=== PATIENT | female | born 1935 | race Caucasian/White ===

== ENCOUNTER → 2016-04-27 | Outpatient (CLI) | payer OTHER, MEDICARE ==
[~2016-04-27] MED LIST: ACET-1311 PEG; ACET650S10 RE; AMLO-110 PEG; ASCO500T16 PEG; BACIOIN2 TOP; BISA10SU38 PR; BNDL2 PEG; DEXT40GE PO; DFL100 PEG; DILT120C68 PEG; GLGKIT IM; GUAI-13 PO; HYDR-4716 PEG; INSDGI SC; IPRASOL4 INH; LCTX PO; LINE1TAB6 PEG; LINE1TAB6 PO; MEGE40SU PEG; METO10SO PEG; MIRT15TA2 PEG; MOML PO; MTML PO; MULTTAB PEG; MULTTAB5 PO; NTRS PEG; NUTR-431 PEG; NVLGI SC; ONDA4TAB46 PEG; OXYC1CAP5 PEG; POLY335019 PEG; POTA10PO PEG; PROT6POW PEG; RRALBUT083 INH; SERT50TA PEG; SODIENE PR; SYN112 PEG; ZINC1CAP PEG; ZNTL PEG
== END ==
LOC: C.LABUPNIT 09:49
PROVIDERS: ATTEND Family Medicine
DX: N64.9 Disorder of breast, unspecified (principal)

== ENCOUNTER → 2016-05-01 | Outpatient (CLI) | payer OTHER, MEDICARE ==
[~2016-05-01] MED LIST changes: +APR/25 PEG; -HYDR-4716 PEG
[2016-05-01 09:57] LABS: BASO % 0.2 %; BASO ABS # 0.04 K/uL (0-0.2); COMPLETE YES; EOS % 2.3 %; HEMATOCRIT 35.8 % (37-47); IG% 1.2 %; LYMPH % 15.3 %; LYMPH ABS # 2.49 K/uL (1.2-3.4); MEAN CELL VOLUME 84.8 fL (80-100); MEAN CORPUSCULAR HEMOGLOBIN 26.5 pg (25-34); MEAN CORPUSCULAR HGB CONC 31.3 g/dl (32-36); MEAN PLATELET VOLUME 11.7 fL (7.4-10.4); MONO % 7.1 %; NEUT % 73.9 %; PLATELET COUNT 395 K/uL (130-400); RED BLOOD COUNT 4.22 M/uL (4.2-5.4); WHITE BLOOD COUNT 16.24 K/uL (4.8-10.8)
[2016-05-01 10:32] LABS: BLOOD UREA NITROGEN 38 mg/dl (7-18); BUN/CREATININE RATIO 28.9 (10-20); CARBON DIOXIDE 21 mmol/L (21-32); CHLORIDE 113 mmol/L (98-107); GLUCOSE 239 mg/dl (70-99); POTASSIUM 4.1 mmol/L (3.5-5.1); SODIUM 146 mmol/L (136-145)
== END ==
LOC: C.LABUPNIT 12:00
PROVIDERS: ATTEND Family Medicine
DX: K51.814 Other ulcerative colitis with abscess (principal); L89.153 Pressure ulcer of sacral region, stage 3; K65.1 Peritoneal abscess; E87.5 Hyperkalemia

== ENCOUNTER 2016-05-08 18:03 | Inpatient (IN) | payer OTHER ==
[~2016-05-08] VITALS: Ht 157.5 cm; Wt 57.0 kg
[~2016-05-08 18:03] MED LIST changes: -BACIOIN2 TOP; -DILT120C68 PEG; -LINE1TAB6 PEG; -LINE1TAB6 PO; -MULTTAB PEG; -NTRS PEG; -ONDA4TAB46 PEG; -PROT6POW PEG
[2016-05-08] MEDS ORDERED: SODIUM CHLORIDE 0.9% 1000ML 1,000 ML IV STA ×2 (18:18→20:51)
--- NOTE | 2016-05-08 18:31 | EMERGENCY ROOM VISIT NOTE ---
History Report prepared by Candice: Isabela Valencia Under the Supervision of: Dr. Antwan Cabrales D.O. First contact with patient: 18:02 Stated Complaint: FEVER, SOB History of Present Illness The patient is a 80 year old female who presents to the Emergency Room with complaints of constant shortness of breath beginning today. The patient's states that she lives at [facility] and they took her temperature and it was 99.6. He reports that she had nausea and vomiting that the aids thought was from the Vancomycin that she was recently placed on. The states that the patient has had a cyst under her breast for 30 years and a nurse at [facility] opened it up and it got infected. They did a culture at [facility] and there was MRSA in the infected abscess. Source of History: spouse/significant other Onset: today Position: other (global) Timing: constant Modifying Factors (Worsening): other (antibiotic) Associated Symptoms: + fevers, + nausea, + vomiting Review of Systems See HPI for pertinent positives & negatives. A total of 10 systems reviewed and were otherwise negative. Past Medical & Surgical Medical Problems: (1) Abdominal wall abscess (2) Aspiration pneumonitis (3) Carotid stent (4) Diabetes (5) Emphysema of lung (6) Hyperlipidemia (7) Hypernatremia (8) Hypertension (9) Leukocytosis (10) Renal artery stenosis (11) Sacral wound (12) SBO (small bowel obstruction) (13) Short-term memory loss (14) SIRS (systemic inflammatory response syndrome) (15) UTI (urinary tract infection) (16) Vomiting Surgical Problems: (1) H/O mastectomy (2) Hx of appendectomy (3) Hx of cholecystectomy Family History Omitted secondary to age Social History Smoking Status: Unknown if Ever Smoked Drug Use: none Marital Status: Housing Status: lives with significant other Occupation Status: retired Current/Historical Medications Scheduled Amlodipine (Norvasc), 5 MG PEG DAILY Ascorbic Acid (Ascorbic Acid), 500 MG PEG BID Bacitracin/Polymyxin B (Polysporin), 1 APPL TOP BID Diltiazem Hcl Ext Rel (Tiazac), 120 MG PEG DAILY Enteral Nutrition Formula (Nutritional Supplement), 160 ML PEG BID Enteral Nutrition Formula (Nutritional Supplement), 210 ML PEG Q4 Fluconazole (Fluconazole), 200 MG PEG QAM Guaifenesin (Tussin), 10 ML PO Q6 Hydralazine HCl (Hydralazine HCl), 25 MG PEG Q8 Insulin Aspart (Novolog), 0 SC ACHS Insulin Glargine (Lantus), 23 SC BID Ipratropium-Albuterol (Duoneb), 3 ML INH Q4H Lactobacillus Acidophilus (Lactinex), 1 TAB PO TID Levothyroxine Sodium (Synthroid), 112 MCG PEG DAILY Megestrol Acetate (Megace Oral), 400 MG PEG DAILY Metoclopramide Hcl (Reglan), 5 MG PEG TID Mirtazapine Soltab (Remeron Soltab), 15 MG PEG HS Multivitamins/Minerals (Mvi With Minerals), 1 TAB PEG DAILY Nutritional Supplements (Twocal Hn), 50 ML PEG hour Potassium Chloride (Potassium Chloride), 40 MEQ PEG HS Protein (Beneprotein), 30 ML PEG DAILY Psyllium (Konsyl), 1 PKT PO Q12 Ranitidine HCl (Ranitidine HCl), 10 ML PEG HS Sertraline (Zoloft), 50 MG PEG DAILY Zinc Sulfate (Zinc Sulfate), 220 MG PEG DAILY Scheduled PRN Acetaminophen (Tylenol), 650 MG PEG Q6 PRN for Pain or Fever Acetaminophen (Tylenol), 650 MG RE Q6H PRN for Pain or Fever Albuterol Sulf (Albuterol Sulfate), 3 ML INH Q4 PRN for SOB/Wheezing Bisacodyl (Dulcolax), 10 MG [place] DAILY PRN for Constipation Dextrose (Diabetic Use) (Insta-Glucose), 1 APPLN PO for HYPOGLYCEMIA PROTOCOL Diphenhydramine Hcl (Benadryl Syrup), 12.5 MG PEG Q4 PRN for allergy Glucagon (Glucagon Emergency Kit), 1 DOSE IM DIRECTED PRN for HYPOGLYCEMIA PROTOCOL Magnesium Hydroxide (Milk Of Magnesia), 30 ML PO DIRECTED PRN for Constipation Ondansetron Hcl (Zofran), 4 MG PEG Q4 PRN for Nausea Oxycodone Hcl (Oxycodone Hcl), 5 MG PEG Q4 PRN for Pain Polyethylene Glycol 3350 (Miralax), 17 GM PEG Q12 PRN for Constipation Sodium Phosphate/Biphosphate (Fleet Enema), 1 EA [place] DAILY PRN for Constipation Allergies Coded Allergies: Ceftriaxone (Verified Allergy, Intermediate, swelling, 05/08/16) Physical Exam Vital Signs Date Time Temp Pulse Resp B/P Pulse Ox O2 Delivery O2 Flow Rate FiO2 05/08/16 22:10 36.9 109 30 159/85 94 Nasal Cannula 2.0 05/08/16 22:03 109 30 159/85 94 Nasal Cannula 2.0 05/08/16 20:18 113 18 121/74 96 Nasal Cannula 2.0 05/08/16 18:39 116 05/08/16 18:16 36.9 107 30 118/83 94 Room Air 05/08/16 18:16 95 Nasal Cannula 2.0 Physical Exam GENERAL: Patient is awake, alert, and in no acute distress. Patient is listless , responds to verbal commands but slowly, does not appear to be in pain or anxious. EYES: The conjunctivae are clear. The pupils are round and reactive. EARS, NOSE, MOUTH AND THROAT: The nose is without any evidence of any deformity. Mucous membranes are moist tongue is midline. Macroglossias was noted , there was no swelling in the posterior oropharynx, inspiratory stridor noted, no palpable masses. NECK: The neck is nontender and supple. RESPIRATORY:Lung sounds diminished throughout with scattered rhonchi and tachypnea was appreciated CARDIOVASCULAR: Regular rate and rhythm noted there no murmurs rubs or gallops normal S1 normal S2 GASTROINTESTINAL: The abdomen is soft. Bowel sounds are present in all quadrants. Abdomen is nontender MUSCULOSKELETAL/EXTREMITIES: There is no evidence of gross deformity full range of motion is noted in the hips and shoulders SKIN: There is no obvious evidence of any rash. There are no petechiae, pallor or cyanosis noted. No edema, there is a small draining area under the left breast. No erythema. NEUROLOGIC: Patient is awake alert and oriented x3 strength. She is at baseline according to the family. Medical Decision & Procedures ER Provider Diagnostic Interpretation: X-ray results as stated below per interpretation by me and the radiologist. CHEST ONE VIEW PORTABLE FINDINGS: The heart is normal in size. There is evidence for underlying emphysema there is no acute parenchymal consolidation. There is no failure. There are no pleural effusions. There are scattered chronic interstitial opacities..[ IMPRESSION: Emphysema. No acute findings. Electronically signed by: Kishore Smalls M.D. 05/08/2016 8:45 PM Dictated Date/Time: 05/08/2016 8:44 PM KUB FINDINGS: There is a left-sided PEG tube. There are 2 right-sided ostomies. There are persistent mildly dilated small bowel loops measuring up to 4.5 cm in diameter. There are surgical clips within the right upper quadrant consistent with a prior cholecystectomy. Renal vascular calcifications are visualized. There is a paucity of colonic gas. IMPRESSION: 1. Postsurgical changes with 2 right-sided ostomies 2. Persistent mildly dilated small bowel loops with a paucity of colonic gas. The findings are again concerning for a low-grade small bowel obstruction Electronically signed by: Kishore Smalls M.D. 05/08/2016 8:48 PM Dictated Date/Time: 05/08/2016 8:45 PM Laboratory Results 05/08/16 20:03 Red Blood Count 4.39, Mean Corpuscular Volume 82.9, Mean Corpuscular Hemoglobin 26.0, Mean Corpuscular Hemoglobin Concent 31.3, Mean Platelet Volume 10.7, Neutrophils (%) (Auto) 67.9, Lymphocytes (%) (Auto) 15.8, Monocytes (%) (Auto) 11.6, Eosinophils (%) (Auto) 0.5, Basophils (%) (Auto) 0.3, Neutrophils # (Auto ) 8.78, Lymphocytes # (Auto) 2.04, Monocytes # (Auto) 1.50, Eosinophils # (Auto ) 0.06, Basophils # (Auto) 0.04 05/08/16 20:03 Test 05/08/16 19:52 05/08/16 20:03 05/08/16 20:11 Urine Color YELLOW Urine Appearance TURBID (CLEAR) Urine pH 5.5 (4.5-7.5) Urine Specific [place] 1.015 (1.000-1.030) Urine Protein 1+ (NEG) Urine Glucose (UA) NEG (NEG) Urine Ketones NEG (NEG) Urine Occult Blood TRACE (NEG) Urine Nitrite NEG (NEG) Urine Bilirubin NEG (NEG) Urine Urobilinogen NEG (NEG) Urine Leukocyte Esterase LARGE (NEG) Urine WBC (Auto) >30 /hpf (0-5) Urine RBC (Auto) 5-10 /hpf (0-4) Urine Hyaline Casts (Auto) 0 /lpf (0-5) Urine Epithelial Cells (Auto) 20-30 /lpf (0-5) Urine Bacteria (Auto) NEG (NEG) Urine Yeast (Auto) PRESENT (NONE PRSENT) White Blood Count 12.92 K/uL (4.8-10.8) Red Blood Count 4.39 M/uL (4.2-5.4) Hemoglobin 11.4 g/dL (12.0-16.0) Hematocrit 36.4 % (37-47) Mean Corpuscular Volume 82.9 fL (80-100) Mean Corpuscular Hemoglobin 26.0 pg (25-34) Mean Corpuscular Hemoglobin Concent 31.3 g/dl (32-36) Platelet Count 441 K/uL (130-400) Mean Platelet Volume 10.7 fL (7.4-10.4) Neutrophils (%) (Auto) 67.9 % Lymphocytes (%) (Auto) 15.8 % Monocytes (%) (Auto) 11.6 % Eosinophils (%) (Auto) 0.5 % Basophils (%) (Auto) 0.3 % Neutrophils # (Auto) 8.78 K/uL (1.4-6.5) Lymphocytes # (Auto) 2.04 K/uL (1.2-3.4) Monocytes # (Auto) 1.50 K/uL (0.11-0.59) Eosinophils # (Auto) 0.06 K/uL (0-0.5) Basophils # (Auto) 0.04 K/uL (0-0.2) RDW Standard Deviation 58.0 fL (36.4-46.3) RDW Coefficient of Variation 19.0 % (11.5-14.5) Immature Granulocyte % (Auto) 3.9 % Immature Granulocyte # (Auto) 0.50 K/uL (0.00-0.02) Nucleated RBC Absolute Count (auto) 0.09 K/uL (0-0) Nucleated Red Blood Cells % 0.7 % Erythrocyte Sedimentation Rate > 90 mm/hr (0-21) Prothrombin Time 11.1 SECONDS (9.0-12.0) Prothromb Time International Ratio 1.0 (0.9-1.1) Activated Partial Thromboplast Time 26.2 SECONDS (21.0-31.0) Partial Thromboplastin Ratio 1.0 Anion Gap 9.0 mmol/L (3-11) Est Creatinine Clear Calc Drug Dose 28.8 ml/min Estimated GFR () 44.2 Estimated GFR (Non- 38.2 BUN/Creatinine Ratio 36.8 (10-20) Calcium Level 9.7 mg/dl (8.5-10.1) Phosphorus Level 3.1 mg/dl (2.5-4.9) Magnesium Level 2.1 mg/dl (1.8-2.4) Total Bilirubin 0.1 mg/dl (0.2-1) Aspartate Amino Transf (AST/SGOT) 23 U/L (15-37) Alanine Aminotransferase (ALT/SGPT) 18 U/L (12-78) Alkaline Phosphatase 73 U/L (45-117) Total Creatine Kinase 48 U/L (26-192) Creatine Kinase MB 2.2 ng/ml (0.5-3.6) Creatine Kinase MB Ratio 4.6 (0-3.0) Troponin I 0.019 ng/ml (0-0.045) C-Reactive Protein 2.20 mg/dl (0-0.29) Pro-B-Type Natriuretic Peptide 2969 pg/ml (0-1800) Total Protein 8.1 gm/dl (6.4-8.2) Albumin 2.9 gm/dl (3.4-5.0) Globulin 5.2 gm/dl (2.5-4.0) Albumin/Globulin Ratio 0.6 (0.9-2) Lipase 233 U/L (73-393) Bedside Lactic Acid Venous 1.50 mmol/L (0.90-1.70) Laboratory results per my review. Medications Administered Medications (Trade) Dose Ordered Sig/Aicha Route Start Time Stop Time Status Last Admin Dose Admin Sodium Chloride (Nss 1000ml) 1,000 ml @ 999 mls/hr Q1H1M STAT IV 05/08/16 18:18 05/08/16 19:18 DC 05/08/16 18:18 999 MLS/HR Levofloxacin (Levaquin / D5W) 750 mg NOW STAT IV 05/08/16 20:51 05/08/16 20:52 DC 05/08/16 22:05 750 MG ECG Indication: SOB/dyspnea Rate (beats per minute): 112 Findings: PVC (frequent), other (low voltage throughout, no ST segment abnormalitites) Comparison ECG Date: 02/27/16 Change: no significant change ED Course 1802: The patient was evaluated in room C6. A complete history and physical examination were performed. 1817: NSS 1,000 ml @ 999 mls/hr IV. 2050: NSS 1,000 ml @ 999 mls/hr IV, Levofloxacin 750mg IV. 2121: I discussed the patient's case with Dr. Mcnair of [facility] [place]. The patient will be evaluated for further management. 2138: Upon reevaluation, the patient is hemodynamically stable. I discussed results and treatment plan with the patient. She verbalizes agreement and understanding. I spoke with Dr. Mcnair of the [facility] [place]. The patient will be evaluated for further management and care. Medical Decision Differential diagnosis: Etiologies such as sepsis, UTI, pneumonia, metabolic, electrolyte abnormalities , cardiac sources, intracerebral event, toxicologic, neurologic, as well as others were entertained. Nursing notes reviewed. Additional history is obtained from the patient's family members. The patient's previous cultures were reviewed. The patient is an 80-year-old female who presented to the emergency department for an evaluation of difficulty breathing and fever. The patient is currently being treated for an abscess in her left breast. She also has a chronic indwelling [place]. The patient was treated with IV fluids and IV antibiotics in the emergency department. I discussed the patient's laboratory and radiographic studies with her and her family members. At this time she does appear to have signs of urinary tract infection but also appears to be very dehydrated. The appearance of the abscess under her left breast is questionable for infection at this time. There is drainage which was sent for another culture. This may require further imaging and then possible open drainage. I discussed his case with the on-call [facility] hospitalist group. They've agreed to evaluate the patient in the emergency department for further management and disposition. Consults Time Called: [id number] Consulting Physician: Dr. Mcnair - [facility] [place] Returned Call: [phone] I discussed the patient's case with Dr. Mcnair of [facility] [place]. The patient will be evaluated for further management. Impression Primary Impression: Dehydration Additional Impressions: UTI (urinary tract infection) Fever Scribe Attestation The scribe's documentation has been prepared under my direction and personally reviewed by me in its entirety. I confirm that the note above accurately reflects all work, treatment, procedures, and medical decision making performed by me. Departure Information Dispostion Being Evaluated By Hospitalist Referrals Jeanne Pham (PCP) Problem Qualifiers
[2016-05-08 20:06] LABS: URINE APPEARANCE TURBID (CLEAR); URINE BILIRUBIN NEG (NEG); URINE COLOR YELLOW; URINE EPITHELIAL CELL AUTO 20-30 /lpf (0-5); URINE NITRITE NEG (NEG); URINE PH 5.5 (4.5-7.5); URINE SPECIFIC GRAVITY 1.015 (1.000-1.030); UROBILINOGEN NEG (NEG); ZZURINE CULT IF INDIC CATH YES
[2016-05-08 20:07] LABS: MANUAL MICROSCOPIC REQUIRED? NO; REVIEW REQ? YES
[2016-05-08 20:15] LABS: BASO % 0.3 %; BASO ABS # 0.04 K/uL (0-0.2); COMPLETE YES; EOS % 0.5 %; HEMATOCRIT 36.4 % (37-47); IG% 3.9 %; LYMPH % 15.8 %; LYMPH ABS # 2.04 K/uL (1.2-3.4); MEAN CELL VOLUME 82.9 fL (80-100); MEAN CORPUSCULAR HGB CONC 31.3 g/dl (32-36); MEAN PLATELET VOLUME 10.7 fL (7.4-10.4); MONO % 11.6 %; NEUT % 67.9 %; PLATELET COUNT 441 K/uL (130-400); RED BLOOD COUNT 4.39 M/uL (4.2-5.4); WHITE BLOOD COUNT 12.92 K/uL (4.8-10.8)
[2016-05-08] MEDS ORDERED: LINE1TAB6 PO (20:28)
[2016-05-08] MEDS ORDERED: DILT120C68 PEG ×2 (20:28)
[2016-05-08] MEDS ORDERED: BACIOIN2 TOP ×2 (20:28)
[2016-05-08] MEDS ORDERED: PROT6POW PEG ×2 (20:28)
[2016-05-08] MEDS ORDERED: ONDA4TAB46 PEG ×2 (20:28)
[2016-05-08] MEDS ORDERED: MULTTAB PEG ×2 (20:28)
[2016-05-08] MEDS ORDERED: NTRS PEG ×4 (20:28)
[2016-05-08 20:34] LABS: BUN/CREATININE RATIO 36.8 (10-20); C-REACTIVE PROTEIN 2.2 mg/dl (0-0.29); CALCIUM 9.7 mg/dl (8.5-10.1); CREATININE 1.3 mg/dl (0.60-1.20); MAGNESIUM 2.1 mg/dl (1.8-2.4); POTASSIUM 3.7 mmol/L (3.5-5.1)
[2016-05-08 20:37] LABS: ALB/GLOB RATIO 0.6 (0.9-2); CKMB/CK RATIO 4.6 (0-3.0); PHOSPHORUS 3.1 mg/dl (2.5-4.9)
[2016-05-08 20:46] LABS: PROTHROMBIN TIME (PATIENT) 11.1 SECONDS (9.0-12.0)
--- NOTE | 2016-05-08 20:47 | DIAGNOSTIC IMAGING REPORT ---
CHEST ONE VIEW PORTABLE CLINICAL HISTORY: Sepsis COMPARISON STUDY: 02/27/2016 FINDINGS: The heart is normal in size. There is evidence for underlying emphysema there is no acute parenchymal consolidation. There is no failure. There are no pleural effusions. There are scattered chronic interstitial opacities..[ IMPRESSION: Emphysema. No acute findings. Electronically signed by: Kishore Smalls M.D. 05/08/2016 8:45 PM Dictated Date/Time: 05/08/2016 8:44 PM
--- NOTE | 2016-05-08 20:50 | DIAGNOSTIC IMAGING REPORT ---
KUB CLINICAL HISTORY: vomiting COMPARISON STUDY: 02/28/2016 FINDINGS: There is a left-sided PEG tube. There are 2 right-sided ostomies. There are persistent mildly dilated small bowel loops measuring up to 4.5 cm in diameter. There are surgical clips within the right upper quadrant consistent with a prior cholecystectomy. Renal vascular calcifications are visualized. There is a paucity of colonic gas. IMPRESSION: 1. Postsurgical changes with 2 right-sided ostomies 2. Persistent mildly dilated small bowel loops with a paucity of colonic gas. The findings are again concerning for a low-grade small bowel obstruction Electronically signed by: Kishore Smalls M.D. 05/08/2016 8:48 PM Dictated Date/Time: 05/08/2016 8:45 PM
[2016-05-08] MEDS ORDERED: LEVAQUIN 750MG / 150ML D5W IV STA (20:51)
[2016-05-08] MEDS ORDERED: POLYETHYLENE (MIRALAX) 17 GM PACK PEG PRN (22:00)
[2016-05-08] MEDS ORDERED: OXYCODONE HCL SOLN 5 MG/5 ML UDC GT PRN (22:00)
[2016-05-08] MEDS ORDERED: DAPTOmycin IV 350 MG in SODIUM CHLORIDE 0.9% 50ML 50 ML IV STA (22:00)
[2016-05-08] MEDS ORDERED: PROMETHAZINE HCL INJ 25 MG in SODIUM CHLORIDE 0.9% 50ML 50 ML IV PRN (22:00)
[2016-05-08] MEDS ORDERED: GLUCOSE 40% GEL 15 GM TUBE PO PRN (22:00)
[2016-05-08] MEDS ORDERED: BISACODYL 10 MG SUPP PR PRN (22:00)
[2016-05-08] MEDS ORDERED: GLUCAGON FOR INJ 1 MG VIAL SQ PRN (22:00)
[2016-05-08] MEDS ORDERED: GLUCOSE 10 TABS/TUBE PO PRN (22:00)
[2016-05-08] MEDS ORDERED: SOD PHOSPHATE/SOD BIPHOSPHATE ENEMA 132 ML BTL PR PRN (22:00)
[2016-05-08] MEDS ORDERED: DEXTROSE 50% 50 ML SYR IV PRN (22:00)
[2016-05-08] MEDS ORDERED: ONDANSETRON INJ 2 MG/ML 2 ML VIAL IV PRN (22:00)
[2016-05-08 22:10] VITALS: BP 159/85; PULSE 109; TEMP 36.9; O2SAT 94; Ht 157.5 cm; Wt 57.0 kg
[2016-05-08] MEDS ORDERED: LEVALBUTEROL 1.25MG/0.5ML NEB INH PRN (22:30)
[2016-05-08] MEDS ORDERED: IPRATROPIUM BROMIDE NEB SOLN 0.02% 2.5 ML VIAL INH PRN (22:30)
[2016-05-09] VITALS (10 sets, daily range): BP systolic 114–155; BP diastolic 71–81; PULSE 64–107; TEMP 36.5–37.1; O2SAT 92–98
[2016-05-09] MEDS ORDERED: ENTERAL NUTRITION FORMULA PEG SCH
[2016-05-09] MEDS: CLINDAMYCIN IV 900 MG in DEXTROSE 5% ADD-VANTAGE 100ML 100 ML IV SCH ×3 (00:55→17:19)
[2016-05-09] MEDS ORDERED: LEVALBUTEROL/IPRATROPIUM NEB INH SCH (03:00)
--- NOTE | 2016-05-09 05:22 | History and Physical ---
History & Physical Date & Time of Service: May 09, 2016 at 05:01 Chief Complaint: Aspiration Pneumonitis, Sbo Primary Care Physician: Jeanne Pham History of Present Illness Source: patient, family The patient is an 80-year-old female who presents emergency department with complaint of shortness of breath that began earlier in the day prior to arrival. She lives at [facility] and [facility], and her temperature reportedly was taken air was 99.6. She did have an episode of nausea and vomiting while at [facility]. She presently is on vancomycin IV for a MRSA infected cyst under her left breast. Past Medical/Surgical History Medical Problems: (1) Carotid stent Status: Chronic (2) Diabetes Status: Chronic (3) Emphysema of lung Status: Chronic (4) Hyperlipidemia Status: Chronic (5) Hypertension Status: Chronic (6) Renal artery stenosis Status: Chronic (7) Short-term memory loss Status: Chronic Family History Omitted secondary to age Social History Smoking Status: Former Smoker Smokeless Tobacco Use: No Alcohol Use: none Drug Use: none Marital Status: Housing status: usp Occupational Status: retired Immunizations History of Influenza Vaccine: Yes Influenza Vaccine Date: Jan 27, 2009 History of Tetanus Vaccine?: Unknown History of Pneumococcal: Yes Pneumococcal Date: Jan 27, 2009 History of Hepatitis B Vaccine: Unknown Multi-Drug Resistant Organisms History of MDRO: Yes Type of MDRO: VRE, MRSA Allergies Coded Allergies: Ceftriaxone (Verified Allergy, Intermediate, swelling, 05/08/16) Home Medications Scheduled Amlodipine (Norvasc), 5 MG PEG DAILY Ascorbic Acid (Ascorbic Acid), 500 MG PEG BID Bacitracin/Polymyxin B (Polysporin), 1 APPL TOP BID Diltiazem Hcl Ext Rel (Tiazac), 120 MG PEG DAILY Enteral Nutrition Formula (Nutritional Supplement), 160 ML PEG BID Enteral Nutrition Formula (Nutritional Supplement), 210 ML PEG Q4 Fluconazole (Fluconazole), 200 MG PEG QAM Guaifenesin (Tussin), 10 ML PO Q6 Hydralazine HCl (Hydralazine HCl), 25 MG PEG Q8 Insulin Aspart (Novolog), 0 SC ACHS Insulin Glargine (Lantus), 23 SC BID Ipratropium-Albuterol (Duoneb), 3 ML INH Q4H Lactobacillus Acidophilus (Lactinex), 1 TAB PO TID Levothyroxine Sodium (Synthroid), 112 MCG PEG DAILY Megestrol Acetate (Megace Oral), 400 MG PEG DAILY Metoclopramide Hcl (Reglan), 5 MG PEG TID Mirtazapine Soltab (Remeron Soltab), 15 MG PEG HS Multivitamins/Minerals (Mvi With Minerals), 1 TAB PEG DAILY Nutritional Supplements (Twocal Hn), 50 ML PEG hour Potassium Chloride (Potassium Chloride), 40 MEQ PEG HS Protein (Beneprotein), 30 ML PEG DAILY Psyllium (Konsyl), 1 PKT PO Q12 Ranitidine HCl (Ranitidine HCl), 10 ML PEG HS Sertraline (Zoloft), 50 MG PEG DAILY Zinc Sulfate (Zinc Sulfate), 220 MG PEG DAILY Scheduled PRN Acetaminophen (Tylenol), 650 MG PEG Q6 PRN for Pain or Fever Acetaminophen (Tylenol), 650 MG RE Q6H PRN for Pain or Fever Albuterol Sulf (Albuterol Sulfate), 3 ML INH Q4 PRN for SOB/Wheezing Bisacodyl (Dulcolax), 10 MG MD DAILY PRN for Constipation Dextrose (Diabetic Use) (Insta-Glucose), 1 APPLN PO for HYPOGLYCEMIA PROTOCOL Diphenhydramine Hcl (Benadryl Syrup), 12.5 MG PEG Q4 PRN for allergy Glucagon (Glucagon Emergency Kit), 1 DOSE IM DIRECTED PRN for HYPOGLYCEMIA PROTOCOL Magnesium Hydroxide (Milk Of Magnesia), 30 ML PO DIRECTED PRN for Constipation Ondansetron Hcl (Zofran), 4 MG PEG Q4 PRN for Nausea Oxycodone Hcl (Oxycodone Hcl), 5 MG PEG Q4 PRN for Pain Polyethylene Glycol 3350 (Miralax), 17 GM PEG Q12 PRN for Constipation Sodium Phosphate/Biphosphate (Fleet Enema), 1 EA MD DAILY PRN for Constipation Review of Systems The patient denies lower extremity swelling, vision change, hearing change, sore throat, fevers, chills, sweats, weight change, blood in urine or stool, dysuria, urinary frequency or urgency, lightheadedness, dizziness, headache, memory loss, rash, abnormal bruising or bleeding, imbalance, focal weakness, numbness or tingling in arms or legs, arthralgias or myalgias, back or neck pain , night sweats. The review of systems is otherwise negative other than for that already noted above, and at least 10 systems have been reviewed. Physical Exam Vital Signs Date Time Temp Pulse Resp B/P Pulse Ox O2 Delivery O2 Flow Rate FiO2 05/09/16 04:17 36.9 64 18 131/71 96 Room Air 05/09/16 00:33 100 18 93 Nasal Cannula 2.0 05/09/16 00:25 37.1 104 22 148/72 92 Nasal Cannula 2.0 05/08/16 23:42 102 32 152/77 95 Nasal Cannula 2.0 05/08/16 22:10 36.9 109 30 159/85 94 Nasal Cannula 2.0 05/08/16 22:03 109 30 159/85 94 Nasal Cannula 2.0 05/08/16 20:18 113 18 121/74 96 Nasal Cannula 2.0 05/08/16 18:39 116 05/08/16 18:16 36.9 107 30 118/83 94 Room Air 05/08/16 18:16 95 Nasal Cannula 2.0 The patient is awake, alert and oriented 3, appears flushed, dehydrated and fatigued, lying in bed and in no acute distress. HEENT--PERRL, mucous membranes and oropharynx dry. Neck--supple, no JVD or bruits, thyroid normal, trachea midline, no adenopathy. Heart--normal S1 and S2, no extra beats, no murmurs, rubs or gallops. Lungs--diffuse inspiratory and for wheezing bilaterally, with scattered rhonchi bilaterally, mild respiratory distress, no accessory muscle use. Abdomen--normal bowel sounds and soft, nontender and nondistended, no hernias or masses, no organomegaly. Extremities--no cyanosis, clubbing or edema. There are good distal pulses b/l. Dermatologic--normal skin turgor, normal color, warm and dry, no abnormal lymph nodes, facial rash as noted above . Draining infected lipoma under left breast. Neurologic--cranial nerves II through XII grossly intact. Rheumatologic--deferred. Psychiatric--normal affect. Diagnostics Laboratory Results Results Past 24 Hours Test 05/08/16 19:52 05/08/16 20:03 05/08/16 20:11 05/09/16 04:44 Range/Units Urine Color YELLOW Urine Appearance TURBID CLEAR Urine pH 5.5 4.5-7.5 Urine Specific [place] 1.015 1.000-1.030 Urine Protein 1+ NEG Urine Glucose (UA) NEG NEG Urine Ketones NEG NEG Urine Occult Blood TRACE NEG Urine Nitrite NEG NEG Urine Bilirubin NEG NEG Urine Urobilinogen NEG NEG Urine Leukocyte Esterase LARGE NEG Urine WBC (Auto) >30 0-5 /hpf Urine RBC (Auto) 5-10 0-4 /hpf Urine Hyaline Casts (Auto) 0 0-5 /lpf Urine Epithelial Cells (Auto) 20-30 0-5 /lpf Urine Bacteria (Auto) NEG NEG Urine Yeast (Auto) PRESENT NONE PRSENT White Blood Count 12.92 4.8-10.8 K/uL Red Blood Count 4.39 4.2-5.4 M/uL Hemoglobin 11.4 12.0-16.0 g/dL Hematocrit 36.4 37-47 % Mean Corpuscular Volume 82.9 80-100 fL Mean Corpuscular Hemoglobin 26.0 25-34 pg Mean Corpuscular Hemoglobin Concent 31.3 32-36 g/dl Platelet Count 441 130-400 K/uL Mean Platelet Volume 10.7 7.4-10.4 fL Neutrophils (%) (Auto) 67.9 % Lymphocytes (%) (Auto) 15.8 % Monocytes (%) (Auto) 11.6 % Eosinophils (%) (Auto) 0.5 % Basophils (%) (Auto) 0.3 % Neutrophils # (Auto) 8.78 1.4-6.5 K/uL Lymphocytes # (Auto) 2.04 1.2-3.4 K/uL Monocytes # (Auto) 1.50 0.11-0.59 K/uL Eosinophils # (Auto) 0.06 0-0.5 K/uL Basophils # (Auto) 0.04 0-0.2 K/uL RDW Standard Deviation 58.0 36.4-46.3 fL RDW Coefficient of Variation 19.0 11.5-14.5 % Immature Granulocyte % (Auto) 3.9 % Immature Granulocyte # (Auto) 0.50 0.00-0.02 K/uL Nucleated RBC Absolute Count (auto) 0.09 0-0 K/uL Nucleated Red Blood Cells % 0.7 % Erythrocyte Sedimentation Rate > 90 0-21 mm/hr Prothrombin Time 11.1 9.0-12.0 SECONDS Prothromb Time International Ratio 1.0 0.9-1.1 Activated Partial Thromboplast Time 26.2 21.0-31.0 SECONDS Partial Thromboplastin Ratio 1.0 Sodium Level 149 136-145 mmol/L Potassium Level 3.7 3.5-5.1 mmol/L Chloride Level 116 98-107 mmol/L Carbon Dioxide Level 24 21-32 mmol/L Anion Gap 9.0 3-11 mmol/L Blood Urea Nitrogen 48 7-18 mg/dl Creatinine 1.30 0.60-1.20 mg/dl Est Creatinine Clear Calc Drug Dose 28.8 ml/min Estimated GFR () 44.2 Estimated GFR (Non- 38.2 BUN/Creatinine Ratio 36.8 10-20 Random Glucose 103 70-99 mg/dl Calcium Level 9.7 8.5-10.1 mg/dl Phosphorus Level 3.1 2.5-4.9 mg/dl Magnesium Level 2.1 1.8-2.4 mg/dl Total Bilirubin 0.1 0.2-1 mg/dl Aspartate Amino Transf (AST/SGOT) 23 15-37 U/L Alanine Aminotransferase (ALT/SGPT) 18 12-78 U/L Alkaline Phosphatase 73 45-117 U/L Total Creatine Kinase 48 26-192 U/L Creatine Kinase MB 2.2 0.5-3.6 ng/ml Creatine Kinase MB Ratio 4.6 0-3.0 Troponin I 0.019 0-0.045 ng/ml C-Reactive Protein 2.20 0-0.29 mg/dl Pro-B-Type Natriuretic Peptide 2969 0-1800 pg/ml Total Protein 8.1 6.4-8.2 gm/dl Albumin 2.9 3.4-5.0 gm/dl Globulin 5.2 2.5-4.0 gm/dl Albumin/Globulin Ratio 0.6 0.9-2 Lipase 233 73-393 U/L Bedside Lactic Acid Venous 1.50 0.90-1.70 mmol/L Microbiology Results 05/08/16 Blood Culture, Received Pending 05/08/16 Blood Culture, Received Pending 05/08/16 Urine Culture, Received Pending 05/08/16 Gram Stain, Received Pending 05/08/16 Wound Culture, Received Pending Diagnostic Radiology Patient Name: RAYMUNDO BUSH Unit Number: [id number] Dictated: 05/08/162043 Transcribed: 05/08/162043 ARG Printed Date/Time: [~ rep prt dt]/[~ rep prt tm] [~ rep ct labl] - [~ rep ct ivnm] [facility] [place] [address] Dictated: 05/08/162043 Transcribed: 05/08/162043 ARG Printed Date/Time: [~ rep prt dt]/[~ rep prt tm] [~ rep ct labl] - [~ rep ct ivnm] CHEST ONE VIEW PORTABLE CLINICAL HISTORY: Sepsis COMPARISON STUDY: 02/27/2016 FINDINGS: The heart is normal in size. There is evidence for underlying emphysema there is no acute parenchymal consolidation. There is no failure. There are no pleural effusions. There are scattered chronic interstitial opacities..[ IMPRESSION: Emphysema. No acute findings. Electronically signed by: Kishore Smalls M.D. 05/08/2016 8:45 PM Dictated Date/Time: 05/08/2016 8:44 PM The status of this report is Signed. Draft = Not yet reviewed or approved by Radiologist. Signed = Reviewed and approved by Radiologist. <AttendingPhy></AttendingPhy> <FamilyPhy>Jeanne Pham</FamilyPhy> < PrimaryPhy>[facility]asio</PrimaryPhy> <UnitNumber>[id number]</UnitNumber> <VisitNumber>[id number]</VisitNumber> <PatientName>RAYMUNDO BUSH</ PatientName> <DateOfBirth>1935</DateOfBirth> <Location>C[facility]C</Location> < ServiceDate>05/08/16</ServiceDate> <MNE>ESINDI</MNE> <OrderingPhy>Antwan Cabrales D.O.</OrderingPhy> <OrderingPhyMNE>f rep ord dr garcía</OrderingPhyMNE> <DictatingPhyMNE>f rep dict dr garcía</DictatingPhyMNE> <CCListMNE>f rep ct mne</ CCListMNE> <AdmittingPhyMNE>f pt admit dr garcía</AdmittingPhyMNE> <AttendingPhyMNE >f pt attend dr garcía</AttendingPhyMNE> <ConsultingPhyMNE>f pt consult dr garcía</ConsultingPhyMNE> <FamilyPhyMNE>f pt fam dr garcía</FamilyPhyMNE> <OtherPhyMNE>f pt other dr garcía</OtherPhyMNE> < PrimaryPhyMNE>f pt prim care dr garcía</PrimaryPhyMNE> <ReferringPhyMNE>f pt referring dr garcía</ReferringPhyMNE> Patient Name: RYAMUNDO BUSH Unit Number: [id number] Dictated: 05/08/162044 Transcribed: 05/08/162044 ARG Printed Date/Time: [~ rep prt dt]/[~ rep prt tm] [~ rep ct labl] - [~ rep ct ivnm] [facility] Radiology Department [place] [id number] Dictated: 05/08/162044 Transcribed: 05/08/162044 ARG Printed Date/Time: [~ rep prt dt]/[~ rep prt tm] [~ rep ct labl] - [~ rep ct ivnm] [~ rep ct add3]] KUB CLINICAL HISTORY: vomiting COMPARISON STUDY: 02/28/2016 FINDINGS: There is a left-sided PEG tube. There are 2 right-sided ostomies. There are persistent mildly dilated small bowel loops measuring up to 4.5 cm in diameter. There are surgical clips within the right upper quadrant consistent with a prior cholecystectomy. Renal vascular calcifications are visualized. There is a paucity of colonic gas. IMPRESSION: 1. Postsurgical changes with 2 right-sided ostomies 2. Persistent mildly dilated small bowel loops with a paucity of colonic gas. The findings are again concerning for a low-grade small bowel obstruction Electronically signed by: Kishore Smalls M.D. 05/08/2016 8:48 PM Dictated Date/Time: 05/08/2016 8:45 PM The status of this report is Signed. Draft = Not yet reviewed or approved by Radiologist. Signed = Reviewed and approved by Radiologist. <AttendingPhy></AttendingPhy> <FamilyPhy>Jeanne Pham</FamilyPhy> < PrimaryPhy>[facility] [place]</PrimaryPhy> <UnitNumber>[id number]</UnitNumber> <VisitNumber>[id number]</VisitNumber> <PatientName>RAYMUNDO BUSH</ PatientName> <DateOfBirth>1935</DateOfBirth> <Location>C.EDC</Location> < ServiceDate>05/08/16</ServiceDate> <MNE>ESINDI</MNE> <OrderingPhy>Antwan Cabrales D.O.</OrderingPhy> <OrderingPhyMNE>f rep ord dr garcía</OrderingPhyMNE> <DictatingPhyMNE>f rep dict dr garcía</DictatingPhyMNE> <CCListMNE>f rep ct nonie</ CCListMNE> <AdmittingPhyMNE>f pt admit dr garcía</AdmittingPhyMNE> <AttendingPhyMNE >f pt attend dr garcía</AttendingPhyMNE> <ConsultingPhyMNE>f pt consult dr garcía</ConsultingPhyMNE> <FamilyPhyMNE>f pt fam dr garcía</FamilyPhyMNE> <OtherPhyMNE>f pt other dr garcaí</OtherPhyMNE> < PrimaryPhyMNE>f pt prim care dr garcía</PrimaryPhyMNE> <ReferringPhyMNE>f pt referring dr garcía</ReferringPhyMNE> EKG EKG shows sinus tachycardia at a rate of 112 bpm, left axis deviation, old inferior wall CT, with no acute ST-T changes. Impression Assessment and Plan Aspiration pneumonitis secondary to nausea and vomiting, associated with present adynamic ileus/history of small bowel obstruction/on PEG tube feeds. Aspiration pneumonitis/MRSA infected draining lipoma under left breast--we will discontinue vancomycin IV. Start daptomycin 370 mg IV daily, clindamycin 900 mg IV every 8 hours, Xopenex with Atrovent nebulizers to use every 6 hours while awake and every 2 hours when necessary. Adynamic ileus, with history of small bowel obstruction--patient gets most of her medications and nutrition via PEG tube. We will hold medications and tube feeds tonight, and attempts to restart in the a.m. Hypertension--continue amlodipine 5 mg per PEG daily, hydralazine 25 mg per PEG every 8 hours, potassium chloride 40 mEq per PEG daily at bedtime. Diabetes mellitus--continue Lantus 23 units subcutaneous twice a day, place on Accu-Cheks before meals and at bedtime with NovoLog coverage. Hypothyroidism--continue levothyroxine sodium 100, grams per PEG daily. Gastroparesis--continue Reglan 5 mg per PEG 3 times a day, this may need to be increased this admission. Depression/insomnia--continue sertraline 50 mg per PEG daily, and mirtazapine SolTab 15 mg per PEG at bedtime. GERD--continue ranitidine 10 ML's per PEG at bedtime. Chronic pain--continue oxycodone 5 mg per PEG every 4 hours. Yeast prophylaxis--continue fluconazole 200 mg per PEG every morning. Level of Care Telemetry Advanced Directives Existing Advance Directive: Yes Existing Living Will: Yes Existing Power of Home Connect Lpn: Yes Resuscitation Status FULL RESUSCITATION VTE Prophylaxis VTE Risk Assessment Done? Y/N: Yes Risk Level: Moderate Given or contraindicated: SCD's Social Service Consult Lives in [facility]
[2016-05-09] MEDS: GUAIFENESIN SUGAR FREE 200 MG/10 ML UDC PO SCH ×5 (05:45→23:13)
[2016-05-09] MEDS: LEVOTHYROXINE 112 MCG TAB PEG SCH (06:13)
[2016-05-09] MEDS ORDERED: INSULIN ASPART 100 UNITS/ML 3 ML PEN SC SCH (06:30)
[2016-05-09] MEDS ORDERED: NURSING VERBAL MED ORDER ONE ×2 (07:15→16:45)
[2016-05-09] MEDS: LEVALBUTEROL 1.25MG/0.5ML NEB INH SCH ×3 (07:24→21:38)
[2016-05-09] MEDS: IPRATROPIUM BROMIDE NEB SOLN 0.02% 2.5 ML VIAL INH SCH ×3 (07:24→21:38)
[2016-05-09 07:33] LABS: BASO % 0.4 %; BASO ABS # 0.04 K/uL (0-0.2); COMPLETE YES; EOS % 0.8 %; HEMATOCRIT 34.4 % (37-47); IG% 3.2 %; LYMPH % 21.3 %; LYMPH ABS # 2.17 K/uL (1.2-3.4); MEAN CELL VOLUME 84.9 fL (80-100); MEAN CORPUSCULAR HEMOGLOBIN 25.9 pg (25-34); MEAN CORPUSCULAR HGB CONC 30.5 g/dl (32-36); MEAN PLATELET VOLUME 10.6 fL (7.4-10.4); MONO % 9.9 %; NEUT % 64.4 %; PLATELET COUNT 359 K/uL (130-400); RED BLOOD COUNT 4.05 M/uL (4.2-5.4); WHITE BLOOD COUNT 10.17 K/uL (4.8-10.8)
[2016-05-09 07:44] LABS: INR 1.1 (0.9-1.1); PROTHROMBIN TIME (PATIENT) 11.7 SECONDS (9.0-12.0)
[2016-05-09] MEDS: MULTIVITAMINS W/MINERALS LIQUID GT SCH (08:07)
[2016-05-09] MEDS: BACITRACIN/POLYMYXIN B OINT 15 GM TUBE EXT SCH ×2 (08:07→21:04)
[2016-05-09] MEDS: LACTOBACILLUS ACIDOPHILUS (FLORANEX) TAB PO SCH ×3 (08:08→21:00)
[2016-05-09] MEDS: FLUCONAZOLE SUSP 40 MG/ML 35 ML PEG SCH (08:08)
[2016-05-09] MEDS: MEGESTROL ACETATE 400 MG/10 ML UDP GT SCH (08:08)
[2016-05-09] MEDS: ASCORBIC ACID 500 MG TAB PEG SCH ×2 (08:09→21:00)
[2016-05-09] MEDS: METOCLOPRAMIDE HCL 10 MG/10 ML UDC PEG SCH ×3 (08:09→21:00)
[2016-05-09] MEDS: PROSOURCE NOCARB 30ML/PKT PEG SCH (08:09)
[2016-05-09] MEDS: SERTRALINE HCL 50 MG TAB PEG SCH (08:10)
[2016-05-09] MEDS: TUBE FEEDING WATER FLUSH PEG SCH ×2 (08:10→21:00)
[2016-05-09] MEDS: ZINC SULFATE 220 MG CAP PO SCH (08:10)
[2016-05-09] MEDS: AMLODIPINE BESYLATE 5 MG TAB PEG SCH (08:10)
[2016-05-09 08:12] LABS: ALT/SGPT 15 U/L (12-78); BLOOD UREA NITROGEN 41 mg/dl (7-18); BUN/CREATININE RATIO 31.5 (10-20); CALCIUM 8.8 mg/dl (8.5-10.1); CARBON DIOXIDE 22 mmol/L (21-32); CHLORIDE 119 mmol/L (98-107); GLUCOSE 82 mg/dl (70-99); MAGNESIUM 1.8 mg/dl (1.8-2.4); POTASSIUM 3.6 mmol/L (3.5-5.1); SODIUM 150 mmol/L (136-145)
[2016-05-09 08:14] LABS: ALKALINE PHOSPHATASE 67 U/L (45-117); AST/SGOT 25 U/L (15-37)
[2016-05-09] MEDS ORDERED: INSULIN GLARGINE SOLOSTAR 100 UNITS/ML 3 ML PEN SC SCH (09:00)
[2016-05-09] MEDS ORDERED: METOCLOPRAMIDE HCL 10 MG/10 ML UDC PEG SCH (09:00)
[2016-05-09] MEDS ORDERED: MULTIVITAMINS W/MINERALS 15ML UDP PEG SCH (09:00)
[2016-05-09] MEDS: INSULIN ASPART 100 UNITS/ML 3 ML PEN SC SCH ×2 (11:45→18:36)
--- NOTE | 2016-05-09 13:06 | Hospitalist Progress Note ---
Hospitalist Progress Note Date of Service May 09, 2016. Subjective arousable. unable to give any history Objective Vital Signs Date Time Temp Pulse Resp B/P Pulse Ox O2 Delivery O2 Flow Rate FiO2 05/09/16 12:25 Nasal Cannula 2.0 05/09/16 12:13 36.8 107 16 151/73 96 Nasal Cannula 2.0 05/09/16 08:05 Nasal Cannula 2.0 05/09/16 07:24 92 18 94 Nasal Cannula 2.0 05/09/16 05:51 105 155/81 05/09/16 04:17 36.9 64 18 131/71 96 Room Air 05/09/16 04:00 Nasal Cannula 2.0 05/09/16 00:33 100 18 93 Nasal Cannula 2.0 05/09/16 00:25 37.1 104 22 148/72 92 Nasal Cannula 2.0 05/08/16 23:42 102 32 152/77 95 Nasal Cannula 2.0 05/08/16 22:10 36.9 109 30 159/85 94 Nasal Cannula 2.0 05/08/16 22:03 109 30 159/85 94 Nasal Cannula 2.0 05/08/16 20:18 113 18 121/74 96 Nasal Cannula 2.0 05/08/16 18:39 116 05/08/16 18:16 36.9 107 30 118/83 94 Room Air 05/08/16 18:16 95 Nasal Cannula 2.0 Physical Exam General Appearance: no apparent distress Respiratory/Chest: lungs clear, no respiratory distress Cardiovascular: regular rate, rhythm Abdomen: normal bowel sounds, non tender, soft Neurologic/Psychiatric: + pertinent finding (arousable. oriented to place and person) Skin: warm/dry, + pertinent finding (left breast - infero-lateral wound with no drainage, erythema. scab present) Laboratory Results Last 24 Hours Test 05/08/16 19:52 05/08/16 20:03 05/08/16 20:11 05/09/16 07:06 Urine Color YELLOW Urine Appearance TURBID Urine pH 5.5 Urine Specific [place] 1.015 Urine Protein 1+ Urine Glucose (UA) NEG Urine Ketones NEG Urine Occult Blood TRACE Urine Nitrite NEG Urine Bilirubin NEG Urine Urobilinogen NEG Urine Leukocyte Esterase LARGE Urine WBC (Auto) >30 /hpf Urine RBC (Auto) 5-10 /hpf Urine Hyaline Casts (Auto) 0 /lpf Urine Epithelial Cells (Auto) 20-30 /lpf Urine Bacteria (Auto) NEG Urine Yeast (Auto) PRESENT White Blood Count 12.92 K/uL 10.17 K/uL Red Blood Count 4.39 M/uL 4.05 M/uL Hemoglobin 11.4 g/dL 10.5 g/dL Hematocrit 36.4 % 34.4 % Mean Corpuscular Volume 82.9 fL 84.9 fL Mean Corpuscular Hemoglobin 26.0 pg 25.9 pg Mean Corpuscular Hemoglobin Concent 31.3 g/dl 30.5 g/dl Platelet Count 441 K/uL 359 K/uL Mean Platelet Volume 10.7 fL 10.6 fL Neutrophils (%) (Auto) 67.9 % 64.4 % Lymphocytes (%) (Auto) 15.8 % 21.3 % Monocytes (%) (Auto) 11.6 % 9.9 % Eosinophils (%) (Auto) 0.5 % 0.8 % Basophils (%) (Auto) 0.3 % 0.4 % Neutrophils # (Auto) 8.78 K/uL 6.54 K/uL Lymphocytes # (Auto) 2.04 K/uL 2.17 K/uL Monocytes # (Auto) 1.50 K/uL 1.01 K/uL Eosinophils # (Auto) 0.06 K/uL 0.08 K/uL Basophils # (Auto) 0.04 K/uL 0.04 K/uL RDW Standard Deviation 58.0 fL 59.1 fL RDW Coefficient of Variation 19.0 % 19.0 % Immature Granulocyte % (Auto) 3.9 % 3.2 % Immature Granulocyte # (Auto) 0.50 K/uL 0.33 K/uL Nucleated RBC Absolute Count (auto) 0.09 K/uL 0.03 K/uL Nucleated Red Blood Cells % 0.7 % 0.3 % Erythrocyte Sedimentation Rate > 90 mm/hr Prothrombin Time 11.1 SECONDS 11.7 SECONDS Prothromb Time International Ratio 1.0 1.1 Activated Partial Thromboplast Time 26.2 SECONDS 26.6 SECONDS Partial Thromboplastin Ratio 1.0 1.0 Sodium Level 149 mmol/L 150 mmol/L Potassium Level 3.7 mmol/L 3.6 mmol/L Chloride Level 116 mmol/L 119 mmol/L Carbon Dioxide Level 24 mmol/L 22 mmol/L Anion Gap 9.0 mmol/L 9.0 mmol/L Blood Urea Nitrogen 48 mg/dl 41 mg/dl Creatinine 1.30 mg/dl 1.30 mg/dl Est Creatinine Clear Calc Drug Dose 28.8 ml/min 26.4 ml/min Estimated GFR () 44.2 44.2 Estimated GFR (Non- 38.2 38.2 BUN/Creatinine Ratio 36.8 31.5 Random Glucose 103 mg/dl 82 mg/dl Calcium Level 9.7 mg/dl 8.8 mg/dl Phosphorus Level 3.1 mg/dl Magnesium Level 2.1 mg/dl 1.8 mg/dl Total Bilirubin 0.1 mg/dl < 0.1 mg/dl Aspartate Amino Transf (AST/SGOT) 23 U/L 25 U/L Alanine Aminotransferase (ALT/SGPT) 18 U/L 15 U/L Alkaline Phosphatase 73 U/L 67 U/L Total Creatine Kinase 48 U/L Creatine Kinase MB 2.2 ng/ml Creatine Kinase MB Ratio 4.6 Troponin I 0.019 ng/ml C-Reactive Protein 2.20 mg/dl Pro-B-Type Natriuretic Peptide 2969 pg/ml Total Protein 8.1 gm/dl 7.1 gm/dl Albumin 2.9 gm/dl 2.5 gm/dl Globulin 5.2 gm/dl Albumin/Globulin Ratio 0.6 Lipase 233 U/L Bedside Lactic Acid Venous 1.50 mmol/L Direct Bilirubin < 0.1 mg/dl Test 05/09/16 07:09 05/09/16 07:37 05/09/16 11:29 Bedside Glucose 93 mg/dl 90 mg/dl 150 mg/dl Assessment and Plan 80 y/o F resident of [facility] who was on IV vancomycin for MRSA infected cyst in left breast and had nausea and vomiting presented to ED with complaint of shortness of breath that began earlier in the day prior to arrival. Aspiration pneumonitis secondary to nausea and vomiting, associated with present adynamic ileus/history of small bowel obstruction/on PEG tube feeds. Aspiration pneumonitis/MRSA infected draining lipoma under left breast-- d/c vancomycin IV. Start daptomycin 370 mg IV daily, clindamycin 900 mg IV every 8 hours, Xopenex with Atrovent nebulizers to use every 6 hours while awake and every 2 hours when necessary. Adynamic ileus, with history of small bowel obstruction-- held PEG tube feeds and meds overnight. restart today. recheck KUB Hypertension--continue amlodipine 5 mg per PEG daily, hydralazine 25 mg per PEG every 8 hours, potassium chloride 40 mEq per PEG daily at bedtime. Diabetes mellitus--Holding insulin until restart tube feeds tonight. On Lantus 23 units subcutaneous twice a day, place on Accu-Cheks before meals and at bedtime with NovoLog coverage. Hypothyroidism--continue levothyroxine sodium 100, grams per PEG daily. Gastroparesis--continue Reglan 5 mg per PEG 3 times a day, this may need to be increased this admission. Depression/insomnia--continue sertraline 50 mg per PEG daily, and mirtazapine SolTab 15 mg per PEG at bedtime. GERD--continue ranitidine 10 ML's per PEG at bedtime. Chronic pain--continue oxycodone 5 mg per PEG every 4 hours. Yeast prophylaxis--continue fluconazole 200 mg per PEG every morning. SCD
[2016-05-09] MEDS ORDERED: [UNRECOGNIZED DRUG - REMARK] SCH (15:00)
--- NOTE | 2016-05-09 15:08 | DIAGNOSTIC IMAGING REPORT ---
KUB CLINICAL HISTORY: Ileus. FINDINGS: An AP, portable, supine abdominal radiograph is compared to study dated 05/08/2016 and correlated with abdominal CT performed 02/27/2016. A gastrostomy tube is again noted in the left upper quadrant. An ostomy is present in the right lower quadrant. Mildly distended gas-filled loops of small bowel persist. This appears decreased in caliber from yesterday. The largest loops measure approximately 4 cm in diameter the appearance remains consistent with with a small bowel obstruction. No evidence of intraperitoneal free air is seen on this supine view. Cholecystectomy clips are identified in the right upper quadrant. There is no radiographic evidence of nephrolithiasis. Advanced atherosclerotic calcification is noted in the abdominal aorta. The lung bases are clear as imaged. The skeletal structures are osteopenic. There is lumbosacral spondylosis. The bony pelvis appears intact. IMPRESSION: 1. Small bowel obstruction with improving gaseous distention of the small bowel loops as compared to yesterday. 2. A gastrostomy tube and ostomy are again noted. 3. Additional findings as above. Electronically signed by: Pratik Spence M.D. 05/09/2016 3:06 PM Dictated Date/Time: 05/09/2016 3:03 PM
[2016-05-09] MEDS ORDERED: D5NSS + 20MEQ KCL 1,000 ML IV SCH (17:30)
[2016-05-09] MEDS ORDERED: IMPACT LIQ 1000 ML BAG PEG SCH (19:00)
[2016-05-09] MEDS: RANITIDINE HCL SYRUP 150 MG/10 ML UDC PEG SCH (21:00)
[2016-05-09] MEDS: MIRTAZAPINE TAB 15 MG TAB PEG SCH (21:00)
[2016-05-09] MEDS: POTASSIUM CHLORIDE PWD 20 MEQ PACK GT SCH (21:00)
[2016-05-09] MEDS: POTASSIUM CHLORIDE INJ 20 MEQ in DEXTROSE 5% 1000ML 1,000 ML IV SCH (22:27)
[2016-05-10] VITALS (14 sets, daily range): BP systolic 111–134; BP diastolic 53–75; PULSE 84–108; TEMP 36.3–36.9; O2SAT 92–99
[2016-05-10] MEDS: INSULIN ASPART 100 UNITS/ML 3 ML PEN SC SCH ×4 (00:13→18:54)
[2016-05-10] MEDS: CLINDAMYCIN IV 900 MG in DEXTROSE 5% ADD-VANTAGE 100ML 100 ML IV SCH ×3 (01:43→18:49)
[2016-05-10] MEDS: IPRATROPIUM BROMIDE NEB SOLN 0.02% 2.5 ML VIAL INH SCH ×4 (02:29→19:11)
[2016-05-10] MEDS: LEVALBUTEROL 1.25MG/0.5ML NEB INH SCH ×4 (02:29→19:11)
[2016-05-10] MEDS: GUAIFENESIN SUGAR FREE 200 MG/10 ML UDC PO SCH ×3 (05:57→18:00)
[2016-05-10 06:18] LABS: BASO % 0.3 %; BASO ABS # 0.03 K/uL (0-0.2); COMPLETE YES; HEMATOCRIT 33.2 % (37-47); IG% 3.2 %; LYMPH % 22.9 %; MEAN CELL VOLUME 82.8 fL (80-100); MEAN CORPUSCULAR HEMOGLOBIN 25.4 pg (25-34); MEAN CORPUSCULAR HGB CONC 30.7 g/dl (32-36); MEAN PLATELET VOLUME 10.5 fL (7.4-10.4); MONO % 11.4 %; NEUT % 61.2 %; PLATELET COUNT 355 K/uL (130-400); RED BLOOD COUNT 4.01 M/uL (4.2-5.4); WHITE BLOOD COUNT 10.04 K/uL (4.8-10.8)
[2016-05-10] MEDS: POTASSIUM CHLORIDE INJ 20 MEQ in DEXTROSE 5% 1000ML 1,000 ML IV SCH ×3 (06:22→22:43)
[2016-05-10] MEDS: LEVOTHYROXINE 112 MCG TAB PEG SCH (06:22)
[2016-05-10 06:31] LABS: INR 1.1 (0.9-1.1); PARTIAL THROMBOPLASTIN RATIO 1.1; PROTHROMBIN TIME (PATIENT) 12.2 SECONDS (9.0-12.0)
[2016-05-10 06:56] LABS: ALT/SGPT 19 U/L (12-78); AST/SGOT 38 U/L (15-37); BLOOD UREA NITROGEN 36 mg/dl (7-18); BUN/CREATININE RATIO 23.9 (10-20); CALCIUM 8.1 mg/dl (8.5-10.1); CARBON DIOXIDE 20 mmol/L (21-32); CHLORIDE 110 mmol/L (98-107); GLUCOSE 177 mg/dl (70-99); MAGNESIUM 1.8 mg/dl (1.8-2.4); POTASSIUM 3.7 mmol/L (3.5-5.1); SODIUM 144 mmol/L (136-145)
[2016-05-10 06:59] LABS: ALKALINE PHOSPHATASE 70 U/L (45-117)
[2016-05-10] MEDS: BACITRACIN/POLYMYXIN B OINT 15 GM TUBE EXT SCH ×2 (08:08→21:59)
[2016-05-10] MEDS: MEGESTROL ACETATE 400 MG/10 ML UDP GT SCH (08:17)
[2016-05-10] MEDS: MULTIVITAMINS W/MINERALS LIQUID GT SCH (08:17)
[2016-05-10] MEDS: FLUCONAZOLE SUSP 40 MG/ML 35 ML PEG SCH (08:18)
[2016-05-10] MEDS: ZINC SULFATE 220 MG CAP PO SCH (08:18)
[2016-05-10] MEDS: SERTRALINE HCL 50 MG TAB PEG SCH (08:18)
[2016-05-10] MEDS: METOCLOPRAMIDE HCL 10 MG/10 ML UDC PEG SCH ×3 (08:18→22:03)
[2016-05-10] MEDS: PROSOURCE NOCARB 30ML/PKT PEG SCH (08:18)
[2016-05-10] MEDS: TUBE FEEDING WATER FLUSH PEG SCH ×2 (08:18→21:00)
[2016-05-10] MEDS: ASCORBIC ACID 500 MG TAB PEG SCH ×2 (08:18→22:06)
[2016-05-10] MEDS: LACTOBACILLUS ACIDOPHILUS (FLORANEX) TAB PO SCH ×3 (08:18→22:05)
[2016-05-10] MEDS: AMLODIPINE BESYLATE 5 MG TAB PEG SCH (08:18)
--- NOTE | 2016-05-10 11:57 | Clinical Documentation Query ---
CLINICAL DOCUMENTATION QUERY Dr. MERIDA, In your clinical opinion is this patient being managed for: ( ) Acute kidney failure on CKD stage III ( ) Other explanation of clinical findings (Please Explain) ( ) Unable to determine (Please Define) ( ) Need to Discuss ( ) Not Agree The medical record reflects the following clinical findings, treatment, and risk factors. Clinical Indicators:80 yo female presenting with aspiration pneumonia. Initial Cr 1.3 which has trended up to Cr 1.5. Baseline Cr range in EMR showed 0.93-1.10 since October 2015, with GFR range 46.7- 56.5 Treatment: IV fluids, monitor PRP's Risk Factors: aspiration pneumonia, DM, HTN, renal artery stenosis, ileus Acute Kidney Injury is defined as any of the following: o Increase in SCr by (>/=) 0.3 mg/dl within 48 hours; or o Increase in SCr to (>/=)1.5 times baseline, which is known or presumed to have occurred within the prior 7 days; or o Urine volume <0.5 ml/kg/h for 6 hours. ." The stages of CKD according to the [employer] are as follows: Stage I: GFR >90 Stage II: GFR 60-89 Stage III: GFR 30-59 Stage IV: GFR 15-29 Stage V: GFR <15 Please clarify and document your clinical opinion in the progress notes and discharge summary. Terms such as "probable", "suspected", "likely", "questionable", "possible", or "still to be ruled out" are acceptable. IF IN AGREEMENT, YOU MUST DOCUMENT ABOVE DIAGNOSTIC STATEMENT IN DAILY PROGRESS NOTES AND DISCHARGE SUMMARY. This document is not part of the patient's record. Thank You, Margarita Gonsalez, BEATRICE [phone]
--- NOTE | 2016-05-10 11:59 | Clinical Documentation Query ---
CLINICAL DOCUMENTATION QUERY Dr. REYES, In your clinical opinion is this patient being managed for: ( x ) Acute kidney failure on CKD stage III ( ) Other explanation of clinical findings (Please Explain) ( ) Unable to determine (Please Define) ( ) Need to Discuss ( ) Not Agree The medical record reflects the following clinical findings, treatment, and risk factors. Clinical Indicators:80 yo female presenting with aspiration pneumonia. Initial Cr 1.3 which has trended up to Cr 1.5. Baseline Cr range in EMR showed 0.93-1.10 since October 2015, with GFR range 46.7- 56.5 Treatment: IV fluids, monitor PRP's Risk Factors: aspiration pneumonia, DM, HTN, renal artery stenosis, ileus Acute Kidney Injury is defined as any of the following: o Increase in SCr by (>/=) 0.3 mg/dl within 48 hours; or o Increase in SCr to (>/=)1.5 times baseline, which is known or presumed to have occurred within the prior 7 days; or o Urine volume <0.5 ml/kg/h for 6 hours. ." The stages of CKD according to the [employer] are as follows: Stage I: GFR >90 Stage II: GFR 60-89 Stage III: GFR 30-59 Stage IV: GFR 15-29 Stage V: GFR <15 Please clarify and document your clinical opinion in the progress notes and discharge summary. Terms such as "probable", "suspected", "likely", "questionable", "possible", or "still to be ruled out" are acceptable. IF IN AGREEMENT, YOU MUST DOCUMENT ABOVE DIAGNOSTIC STATEMENT IN DAILY PROGRESS NOTES AND DISCHARGE SUMMARY. This document is not part of the patient's record. Thank You, Margarita Gonsalez RN [phone]
--- NOTE | 2016-05-10 20:33 | Family Medicine Progress Note ---
Progress Note Date of Service May 10, 2016. Subjective Pt evaluation today including: conversation w/ patient, physical exam, chart review, lab review Voiding: storey catheter in place unable to get much history from the patient Constitutional: No chills, No fever Eyes: No worsening of vision ENT: No hearing loss Respiratory: No cough, No sputum, No wheezing Abdomen: No nausea, No pain Female : No dysuria Neurologic: No memory loss Psychiatric: No depression symptoms Medications Reported Home Medications Medications Dose Route/Sig Max Daily Dose Days Date Category Dose Instructions Zyvox (Linezolid) 600 Mg Tab 600 Mg PEG BID 5 05/12/16 Rx Polysporin (Bacitracin/Polymyxin B Sulfate) Oint 1 Appl TOP BID 05/08/16 Reported TO AREA BENEATH LEFT BREAST Zofran (Ondansetron HCl) 4 Mg Tab 4 Mg PEG Q4 PRN 05/08/16 Reported Nutritional Supplement (Enteral Nutritional Formula) Ea 210 Ml PEG Q4 05/08/16 Reported Nutritional Supplement (Enteral Nutritional Formula) Ea 160 Ml PEG BID 05/08/16 Reported WATER FLUSH VIA PEG TUBE BEFORE AND AFTER TUBE FEEDING. INFUSE BY GRAVITY DO NOT PUSH Mvi With Minerals (Multivitamins/Minerals) Tab 1 Tab PEG DAILY 05/08/16 Reported Beneprotein (Protein) 6 Gm Pow 30 Ml PEG DAILY 05/08/16 Reported Tiazac (Diltiazem HCl) 120 Mg Capcr 120 Mg PEG DAILY 05/08/16 Reported Fluconazole 100 Mg Tab 200 Mg PEG QAM 11 03/04/16 Rx Lactinex (Lactobacillus Acidophilus) Tab 1 Tab PO TID 02/27/16 Reported Albuterol Sulfate (Albuterol Sulf) 2.5 Mg/3 Ml Nebu 3 Ml INH Q4 PRN 02/14/16 Reported Duoneb (Ipratropium-Albuterol) 3 Ml Nebu 3 Ml INH Q4H 02/14/16 Reported 1 inhalation inhale orally every 4 hours related to other pneumonia, unspecified organism Tussin (Guaifenesin) 100 Mg/5 Ml Syp 10 Ml PO Q6 02/14/16 Reported Lantus (Insulin Glargine) 100 Unit/Ml Inj 23 SC BID 02/14/16 Reported Ascorbic Acid 500 Mg Tab 500 Mg PEG BID 02/14/16 Reported Zinc Sulfate 220 Mg Cap 220 Mg PEG DAILY 02/14/16 Reported Zoloft (Sertraline HCl) 50 Mg Tab 50 Mg PEG DAILY 02/14/16 Reported Ranitidine HCl 150 Mg/10 Ml Syrp 10 Ml PEG HS 02/14/16 Reported Megace Oral (Megestrol Acetate) 40 Mg/Ml Melba 400 Mg PEG DAILY 02/14/16 Reported Konsyl (Psyllium) 1 Pkt Pack 1 Pkt PO Q12 30 12/04/15 Rx Miralax (Polyethylene Glycol 3350) 1 Pow Pow 17 Gm PEG Q12 PRN 11/21/15 Reported Milk Of Magnesia (Magnesium Hydroxide) 30 Ml Susp 30 Ml PO DIRECTED PRN 11/21/15 Reported Glucagon Emergency Kit (Glucagon) 1 Mg Kit 1 Dose IM DIRECTED PRN 11/21/15 Reported inject 1 application intramuscularly as needed for hypoglycemia blood glucose<60 and /or syptomatic/unresponsive hypoglycemia. May repeat in 15 minutes if needed Benadryl Syrup (Diphenhydramine Hcl) 2.5 Mg/1 Ml Syrp 12.5 Mg PEG Q4 PRN 11/21/15 Reported Reglan (Metoclopramide HCl) 5 Mg/5 Ml Syrp 5 Mg PEG TID 11/21/15 Reported Remeron Soltab (Mirtazapine) 15 Mg Soltab 15 Mg PEG HS 11/21/15 Reported Norvasc (Amlodipine Besylate) 5 Mg Tab 5 Mg PEG DAILY 11/21/15 Reported Tylenol (Acetaminophen) 650 Mg Supp 650 Mg RE Q6H PRN 10/23/15 Reported Twocal Hn (Nutritional Supplements) 1 Liq Liq 50 Ml PEG HOUR 10/09/15 Reported give 50ml/hr via peg-tube one time a day for nutrition. run the twocal at 50ml/hr x 20 hours. start at 7 pm-3pm Synthroid (Levothyroxine Sodium) 112 Mcg Tab 112 Mcg PEG DAILY 10/09/15 Reported Potassium Chloride 20 Meq Pow 40 Meq PEG HS 09/23/15 Reported Hydralazine HCl 25 Mg Tab 25 Mg PEG Q8 07/15/15 Reported HOLD FOR SBP <100 OR <55 HR Tylenol (Acetaminophen) 325 Mg Tab 650 Mg PEG Q6 PRN 07/02/15 Reported DO NOT EXCEED 3GM/24HR Oxycodone Hcl 5 Mg Cap 5 Mg PEG Q4 PRN 07/02/15 Reported Insta-Glucose (Dextrose (Diabetic Use)) 40 % Gel 1 Appln PO PRN 04/26/15 Reported Fleet Enema (Sodium Phosphate/Biphosphate) Alana 1 Ea [place] DAILY PRN 04/26/15 Reported USE 1 ENEMA ON [id number] SHIFT AT LEAST 4 HOURS AFTER BISACODYL SUPP Dulcolax (Bisacodyl) 10 Mg Sup 10 Mg [place] DAILY PRN 04/26/15 Reported USE ON DAY 4 OF NO BOWEL MOVEMENT Novolog (Insulin Aspart) 100 Unit/ Inj 0 SC ACHS 04/26/15 Reported USE PER SLIDING SCALE: BS-150 = 0 UNITS, 151-200 = 3 UNITS, 201-250 = 6 UNITS, 251-300 = 9 UNITS, 301-350 = 12 UNITS, 351-400 = 14 UNITS 401-450 = 16 UNITS 451+ CALL PHYSICIAN Objective Physical Exam General Appearance: WD/WN, no apparent distress Eyes: normal inspection ENT: normal ENT inspection, hearing grossly normal Neck: supple Respiratory/Chest: chest non-tender, + wheezing, + pertinent finding (left breast wound) Cardiovascular: regular rate, rhythm, no edema Abdomen: normal bowel sounds, + pertinent finding (colostomt, fistula bag, peg tube) Extremities: no pedal edema Assessment and Plan 80 y/o F resident of [facility] who was on IV vancomycin for MRSA infected cyst in left breast and had nausea and vomiting presented to ED with complaint of shortness of breath that began earlier in the day prior to arrival. Aspiration pneumonitis sec to N/V : - clindamycin 900 mg IV q8h, daptomycin Adynamic ileus: - h/o SBO PEG tube feeds held - will repeat KUB tomorrow Hypertension--continue amlodipine 5 mg , hydralazine 25 mg q8h through peg tube Diabetes mellitus--Holding insulin until restart tube feeds tonight. On Lantus 23 units subcutaneous twice a day, place on Accu-Cheks before meals and at bedtime with NovoLog coverage. Hypothyroidism: - levothyroxine Gastroparesis-- - continue Reglan 5 mg per PEG TID Depression/insomnia - continue sertraline 50 mg per PEG daily, and mirtazapine SolTab 15 mg per PEG at bedtime. GERD - continue ranitidine 10 ML's per PEG at bedtime. Chronic pain - continue oxycodone 5 mg per PEG every 4 hours. Yeast prophylaxis--continue fluconazole 200 mg per PEG every morning. SCD Reviewed: Pt Seen/Exam by YULISSA Machado Notes, Prior Records, Labs, RAD History Resident Physician Supervision Note: I interviewed and examined the patient. Discussed with Dr. Yip and agree with findings and plan as documented in the note. Any exceptions or clarifications are listed here: Pt nonverbal. [place] records reviewed. Remains with ileus on KUB but is having output in ostomy. Has a fistula as well with no output. Afebrile. ESR very elevated could be due to multiple factors-chronic fistulous drainage, sacral decub ulcer, h/o PMR, aspiration PNA. Vitals reviewed and stable NAD, nonverbal but shakes head yes and no Pulm: decreased at bases, otherwise CTAB CV RRR no m/g/r Abd: PEG tube in place, ostomy with stool in bag, fistula bag empty, some mild TTP diffusely in abd as evidenced by wincing and trying to bat my hand away, no rigidity Ext: no edema A/P: 80 yo debilitated woman with dementia, DMII, PAD, dynamic ileus, PEG tube, dysphagia, ostomy and fistulous output from peritoneal abscess, MRSA breat wound /cyst, sacral decub ulcer, hypothyroidism, HTN, tachycardia, PMR, GERD, UC, and chronic indwelling Storey for urinary retention, mood disorder, here with N/V and aspiration pneumonitis, low grade fever and acute hypoxemic respiratory failure to 88%. Continue CLinda for aspiration coverage and Dapto for breast wound growing MRSA resistant to clinda. Wean off supplemental O2 back to baseline. From an aspiration standpoint she is very stable. Ileus-giving PEG meds but holding tube feeds again as did have some ttp on exam and residual ileus on KUB. WIll repeat KUB in AM and likely restrt tube feeds tomorrow. ESR elevated > 90 --> need to further explore etiology but could be due to multiple factors-chronic fistulous drainage, sacral decub ulcer, h/o PMR, aspiration PNA. Follow BCxs, Ur cx, consider CT pelvis to look for OM COuld likely be discharged back to [place] in 1-2 days. Documented By: Shilpi Bonilla
[2016-05-10] MEDS: POTASSIUM CHLORIDE PWD 20 MEQ PACK GT SCH ×2 (21:00→22:43)
[2016-05-10] MEDS: RANITIDINE HCL SYRUP 150 MG/10 ML UDC PEG SCH (22:05)
[2016-05-10] MEDS: MIRTAZAPINE TAB 15 MG TAB PEG SCH (22:07)
[2016-05-11] VITALS (9 sets, daily range): BP systolic 102–146; BP diastolic 56–72; PULSE 80–102; TEMP 36.5–37.1; O2SAT 91–98
[2016-05-11] MEDS: INSULIN ASPART 100 UNITS/ML 3 ML PEN SC SCH ×4 (00:29→18:00)
[2016-05-11] MEDS: LEVALBUTEROL 1.25MG/0.5ML NEB INH SCH ×4 (02:05→20:09)
[2016-05-11] MEDS: IPRATROPIUM BROMIDE NEB SOLN 0.02% 2.5 ML VIAL INH SCH ×4 (02:05→20:09)
[2016-05-11] MEDS: CLINDAMYCIN IV 900 MG in DEXTROSE 5% ADD-VANTAGE 100ML 100 ML IV SCH ×3 (02:52→18:13)
[2016-05-11] MEDS: GUAIFENESIN SUGAR FREE 200 MG/10 ML UDC PO SCH ×2 (06:00)
[2016-05-11] MEDS: LEVOTHYROXINE 112 MCG TAB PEG SCH (06:07)
[2016-05-11] MEDS: POTASSIUM CHLORIDE INJ 20 MEQ in DEXTROSE 5% 1000ML 1,000 ML IV SCH ×3 (06:09→22:51)
[2016-05-11 07:27] LABS: BASO % 0.2 %; BASO ABS # 0.02 K/uL (0-0.2); COMPLETE YES; HEMATOCRIT 32.2 % (37-47); IG% 2.1 %; LYMPH % 23.9 %; LYMPH ABS # 2.31 K/uL (1.2-3.4); MEAN CELL VOLUME 80.9 fL (80-100); MEAN CORPUSCULAR HEMOGLOBIN 25.6 pg (25-34); MEAN CORPUSCULAR HGB CONC 31.7 g/dl (32-36); MEAN PLATELET VOLUME 10.2 fL (7.4-10.4); MONO % 8.1 %; NEUT % 62.7 %; PLATELET COUNT 290 K/uL (130-400); RED BLOOD COUNT 3.98 M/uL (4.2-5.4); WHITE BLOOD COUNT 9.66 K/uL (4.8-10.8)
[2016-05-11 07:35] LABS: INR 1.1 (0.9-1.1); PARTIAL THROMBOPLASTIN RATIO 1.1
[2016-05-11] MEDS: SERTRALINE HCL 50 MG TAB PEG SCH (07:38)
[2016-05-11] MEDS: AMLODIPINE BESYLATE 5 MG TAB PEG SCH (07:38)
[2016-05-11] MEDS: ASCORBIC ACID 500 MG TAB PEG SCH ×2 (07:38→20:47)
[2016-05-11] MEDS: LACTOBACILLUS ACIDOPHILUS (FLORANEX) TAB PO SCH ×3 (07:38→20:48)
[2016-05-11] MEDS: ZINC SULFATE 220 MG CAP PO SCH (07:39)
[2016-05-11] MEDS: MULTIVITAMINS W/MINERALS LIQUID GT SCH (07:42)
[2016-05-11] MEDS: FLUCONAZOLE SUSP 40 MG/ML 35 ML PEG SCH (07:42)
[2016-05-11] MEDS: METOCLOPRAMIDE HCL 10 MG/10 ML UDC PEG SCH ×3 (07:43→20:46)
[2016-05-11] MEDS: MEGESTROL ACETATE 400 MG/10 ML UDP GT SCH (07:43)
[2016-05-11] MEDS: TUBE FEEDING WATER FLUSH PEG SCH ×2 (07:43→20:48)
[2016-05-11] MEDS: PROSOURCE NOCARB 30ML/PKT PEG SCH (07:43)
[2016-05-11] MEDS: BACITRACIN/POLYMYXIN B OINT 15 GM TUBE EXT SCH ×2 (07:45→20:45)
[2016-05-11 08:17] LABS: ALKALINE PHOSPHATASE 64 U/L (45-117); ALT/SGPT 19 U/L (12-78); AST/SGOT 40 U/L (15-37); BLOOD UREA NITROGEN 25 mg/dl (7-18); BUN/CREATININE RATIO 20.6 (10-20); CALCIUM 8.4 mg/dl (8.5-10.1); CARBON DIOXIDE 18 mmol/L (21-32); CHLORIDE 105 mmol/L (98-107); GLUCOSE 141 mg/dl (70-99); MAGNESIUM 1.7 mg/dl (1.8-2.4); POTASSIUM 4.3 mmol/L (3.5-5.1); SODIUM 135 mmol/L (136-145)
[2016-05-11] MEDS ORDERED: NURSING VERBAL MED ORDER ONE (11:15)
--- NOTE | 2016-05-11 12:30 | Family Medicine Progress Note ---
Progress Note Date of Service May 11, 2016. Subjective Pt evaluation today including: conversation w/ patient, physical exam, chart review, lab review Voiding: storey catheter in place doing better. appears more oriented. denies any pain at the moment Constitutional: No chills, No fever Eyes: No worsening of vision ENT: No hearing loss Respiratory: No shortness of breath Cardiovascular: No chest pain Abdomen: No nausea, No pain, No vomiting Musculoskeletal: No joint pain Medications Current Inpatient Medications Medications (Trade) Dose Ordered Sig/Aicha Route Start Time Stop Time Status Last Admin Dose Admin Amlodipine Besylate (Norvasc Tab) 5 mg DAILY PEG 05/09/16 09:00 06/08/16 08:59 05/11/16 07:38 5 MG Ascorbic Acid (Vitamin C Tab) 500 mg BID PEG 05/09/16 09:00 06/08/16 08:59 05/11/16 07:38 500 MG Bacitracin/ Polymyxin B Sulfate (Polysporin Oint) 1 appln BID EXT 05/09/16 09:00 06/08/16 08:59 05/11/16 07:45 1 APPLN Bisacodyl (Dulcolax Supp) 10 mg DAILY PRN CO 05/08/16 22:00 06/07/16 21:59 Diphenhydramine HCl (Benadryl Syrup) 12.5 mg Q4 PRN PEG 05/08/16 22:00 06/07/16 21:59 Fluconazole (Diflucan Susp) 200 mg QAM PEG 05/09/16 09:00 06/08/16 08:59 05/11/16 07:42 200 MG Hydralazine HCl (Apresoline Tab) 25 mg Q8 PEG 05/08/16 22:00 06/07/16 21:59 05/11/16 06:08 25 MG Lactobacillus Acidophilus (Floranex Tab) 1 tab TID PO 05/09/16 09:00 06/08/16 08:59 05/11/16 07:38 1 TAB Levothyroxine Sodium (Synthroid Tab) 112 mcg DAILYBB PEG 05/09/16 06:30 06/08/16 06:29 05/11/16 06:07 112 MCG Megestrol Acetate (Megace Susp) 400 mg DAILY GT 05/09/16 09:00 06/08/16 08:59 05/11/16 07:43 400 MG Enteral Nutritional Formula (Impact 1.0 Max) 1 ml DAILY@1900 PEG 05/09/16 19:00 06/08/16 18:59 Future Hold Potassium Chloride (Klor-Con Pwd) 40 meq HS GT 05/09/16 21:00 06/08/16 20:59 05/10/16 22:43 40 MEQ Ranitidine HCl (zANTac SYRUP) 150 mg HS PEG 05/09/16 21:00 06/08/16 20:59 05/10/16 22:05 150 MG Sertraline HCl (Zoloft Tab) 50 mg DAILY PEG 05/09/16 09:00 06/08/16 08:59 05/11/16 07:38 50 MG Sodium Biphosphate/ Sodium Phosphate (Fleet Enema) 132 ml DAILY PRN CO 05/08/16 22:00 06/07/16 21:59 Zinc Sulfate (Zinc Sulfate Cap) 220 mg DAILY PO 05/09/16 09:00 06/08/16 08:59 05/11/16 07:39 220 MG Sterile Water (Tube Feeding Water Flush) 1 ea BID PEG 05/09/16 09:00 06/08/16 08:59 05/11/16 07:43 1 EA Mirtazapine (Remeron Tab) 15 mg HS PEG 05/09/16 21:00 06/08/16 20:59 05/10/16 22:07 15 MG Oxycodone HCl (Roxicodone Soln) 5 mg Q4 PRN GT 05/08/16 22:00 06/07/16 21:59 Polyethylene (Miralax Powder Packet) 17 gm Q12 PRN PEG 05/08/16 22:00 06/07/16 21:59 Enteral Nutritional Formula 30 ml 30 ml DAILY PEG 05/09/16 09:00 06/08/16 08:59 05/11/16 07:43 30 ML Clindamycin Phosphate/Dextrose (Cleocin Iv/ Dextrose Add-[place] 100ML) 106 ml @ 100 mls/hr Q8H IV 05/09/16 02:00 05/16/16 01:59 05/11/16 09:54 100 MLS/HR Ondansetron HCl 4 mg 4 mg Q6H PRN IV 05/08/16 22:00 06/07/16 21:59 Promethazine HCl/ Sodium Chloride (Phenergan Inj/ Nss 50ml) 51 ml @ 204 mls/hr Q6H PRN IV 05/08/16 22:00 06/07/16 21:59 Glucose (Glucose 40% Gel) UD PRN PO 05/08/16 22:00 06/07/16 21:59 Glucose (Glucose Chew Tab) 1 tabs UD PRN PO 05/08/16 22:00 06/07/16 21:59 Dextrose (Dextrose 50% 50ML Syringe) 50 ml UD PRN IV 05/08/16 22:00 06/07/16 21:59 Glucagon (Glucagon Inj) 1 mg UD PRN SQ 05/08/16 22:00 06/07/16 21:59 Ipratropium [place] (Atrovent 0.02% 0.5MG/2.5ML Neb) 0.5 mg Q6R INH 05/09/16 03:00 06/08/16 02:59 05/11/16 07:25 0.5 MG Levalbuterol (Xopenex 1.25MG/ 0.5ML Neb) 1.25 mg Q6R INH 05/09/16 03:00 06/08/16 02:59 05/11/16 07:25 1.25 MG Ipratropium [place] (Atrovent 0.02% 0.5MG/2.5ML Neb) 0.5 mg Q2H PRN INH 05/08/16 22:30 06/07/16 22:29 Levalbuterol (Xopenex 1.25MG/ 0.5ML Neb) 1.25 mg Q2H PRN INH 05/08/16 22:30 06/07/16 22:29 Miscellaneous (Stop Order) 1 ea DAILY@1500 N/A 05/09/16 15:00 06/08/16 14:59 Future Hold Metoclopramide HCl (Reglan Syrup) 10 mg TID PEG 05/09/16 09:00 06/08/16 08:59 05/11/16 07:43 10 MG Insulin Aspart SLIDING SCALE If C... Q6 SC 05/09/16 12:00 06/08/16 11:59 05/11/16 06:04 1 UNITS Potassium Chloride 20 meq/ Dextrose 1,010 ml @ 125 mls/hr Q8H5M IV 05/09/16 22:15 06/08/16 22:14 05/11/16 06:09 125 MLS/HR Daptomycin/Sodium Chloride (Cubicin IV/Nss 50ml) 54.6 ml @ 100 mls/hr Q24H IV 05/11/16 12:30 05/21/16 12:29 UNV Objective Vital Signs Date Time Temp Pulse Resp B/P Pulse Ox O2 Delivery O2 Flow Rate FiO2 05/11/16 11:25 37.1 96 18 102/56 98 Nasal Cannula 2.0 05/11/16 08:00 Nasal Cannula 2.0 05/11/16 07:25 91 20 98 Nasal Cannula 2.0 05/11/16 07:21 36.5 96 18 146/72 98 Nasal Cannula 2.0 05/11/16 04:32 36.5 83 18 110/69 91 2.0 05/11/16 04:00 Nasal Cannula 2.0 05/11/16 00:31 36.6 80 18 117/65 98 Room Air 05/11/16 00:00 Nasal Cannula 2.0 05/10/16 21:57 96 126/75 05/10/16 20:00 99 Nasal Cannula 2.0 05/10/16 19:41 36.9 91 18 125/72 97 2.0 05/10/16 19:12 94 22 97 Nasal Cannula 2.0 05/10/16 16:00 99 Nasal Cannula 2.0 05/10/16 14:50 36.6 102 18 111/53 99 Room Air 05/10/16 14:10 84 22 95 Nasal Cannula 2.0 Physical Exam General Appearance: WD/WN, no apparent distress Eyes: normal inspection Neck: supple Respiratory/Chest: chest non-tender, no respiratory distress, no accessory muscle use, + wheezing, + pertinent finding (MRSA positivve abscess under left breast) Cardiovascular: regular rate, rhythm Abdomen: normal bowel sounds, non tender, + pertinent finding (colostomy tube, peg tube) Neurologic/Psychiatric: alert, normal mood/affect, oriented x 3 Skin: + pertinent finding (decubitus ulcer stage 3 in sacral area) Laboratory Results 05/11/16 06:45 Red Blood Count 3.98, Mean Corpuscular Volume 80.9, Mean Corpuscular Hemoglobin 25.6, Mean Corpuscular Hemoglobin Concent 31.7, Mean Platelet Volume 10.2, Neutrophils (%) (Auto) 62.7, Lymphocytes (%) (Auto) 23.9, Monocytes (%) (Auto) 8.1, Eosinophils (%) (Auto) 3.0, Basophils (%) (Auto) 0.2, Neutrophils # (Auto) 6.06, Lymphocytes # (Auto) 2.31, Monocytes # (Auto) 0.78, Eosinophils # (Auto) 0.29, Basophils # (Auto) 0.02 05/11/16 06:45 Test 05/11/16 06:45 05/11/16 11:58 White Blood Count 9.66 K/uL (4.8-10.8) Red Blood Count 3.98 M/uL (4.2-5.4) Hemoglobin 10.2 g/dL (12.0-16.0) Hematocrit 32.2 % (37-47) Mean Corpuscular Volume 80.9 fL (80-100) Mean Corpuscular Hemoglobin 25.6 pg (25-34) Mean Corpuscular Hemoglobin Concent 31.7 g/dl (32-36) Platelet Count 290 K/uL (130-400) Mean Platelet Volume 10.2 fL (7.4-10.4) Neutrophils (%) (Auto) 62.7 % Lymphocytes (%) (Auto) 23.9 % Monocytes (%) (Auto) 8.1 % Eosinophils (%) (Auto) 3.0 % Basophils (%) (Auto) 0.2 % Neutrophils # (Auto) 6.06 K/uL (1.4-6.5) Lymphocytes # (Auto) 2.31 K/uL (1.2-3.4) Monocytes # (Auto) 0.78 K/uL (0.11-0.59) Eosinophils # (Auto) 0.29 K/uL (0-0.5) Basophils # (Auto) 0.02 K/uL (0-0.2) RDW Standard Deviation 56.7 fL (36.4-46.3) RDW Coefficient of Variation 19.4 % (11.5-14.5) Immature Granulocyte % (Auto) 2.1 % Immature Granulocyte # (Auto) 0.20 K/uL (0.00-0.02) Erythrocyte Sedimentation Rate > 90 mm/hr (0-21) Prothrombin Time 12.0 SECONDS (9.0-12.0) Prothromb Time International Ratio 1.1 (0.9-1.1) Activated Partial Thromboplast Time 29.4 SECONDS (21.0-31.0) Partial Thromboplastin Ratio 1.1 Anion Gap 12.0 mmol/L (3-11) Est Creatinine Clear Calc Drug Dose 28.6 ml/min Estimated GFR () 48.7 Estimated GFR (Non- 42.1 BUN/Creatinine Ratio 20.6 (10-20) Calcium Level 8.4 mg/dl (8.5-10.1) Magnesium Level 1.7 mg/dl (1.8-2.4) Total Bilirubin 0.2 mg/dl (0.2-1) Direct Bilirubin < 0.1 mg/dl (0-0.2) Aspartate Amino Transf (AST/SGOT) 40 U/L (15-37) Alanine Aminotransferase (ALT/SGPT) 19 U/L (12-78) Alkaline Phosphatase 64 U/L (45-117) Total Protein 7.4 gm/dl (6.4-8.2) Albumin 2.6 gm/dl (3.4-5.0) Bedside Glucose 155 mg/dl (70-90) Assessment and Plan 80 y/o F resident [facility] h/o bowel ischemia /UC s/p colostomy, fistula tube , HTN, DM, who was on IV vancomycin for MRSA infected cyst in left breast and had nausea and vomiting presented to ED with complaint of shortness of breath that began earlier in the day prior to arrival. Aspiration pneumonitis sec to N/V : - clindamycin 900 mg IV q8h - Wean O2 considering good saturations MRSA positive left breast infected cyst: - Continue daptomycin - Consult General surgery Sacral decubitus ulcer stage 3: appears clean - wound care nurse involved Adynamic ileus: has a h/o SBO - KUB today- WNL - will restart tube feeds h/o Cdiff: was treated with oral metronidazole recently - will recheck for C.diff Hypertension: - continue amlodipine 5 mg , hydralazine 25 mg q8h through peg tube Diabetes mellitus - Holding insulin until restart tube feeds . On Lantus 23 units subcutaneous twice a day, place on Accu-Cheks before meals and at bedtime with NovoLog coverage. Hypothyroidism: - levothyroxine via PEG tube Gastroparesis: - continue Reglan 5 mg per PEG TID Depression/insomnia - continue sertraline 50 mg per PEG daily, and mirtazapine SolTab 15 mg per PEG at bedtime. GERD - continue ranitidine 10 ML's per PEG at bedtime. Chronic pain - continue oxycodone 5 mg per PEG every 4 hours. Yeast prophylaxis--continue fluconazole 200 mg per PEG every morning. SCD disposition: med/surg Discharge planning: snf facility Reviewed: Pt Seen/Exam by , YULISSA Notes, Labs, RAD History Resident Physician Supervision Note: I was present with Dr. Yip during the history and exam. I discussed the case with the resident and agree with the findings and plan as documented in the note. Any exceptions or clarifications are listed here: Pt much more communicative today. Denies GARCIA, chest pain, jaw pain,SOB or cough, denies abd pain. Is putting out liquid stool in ostomy, Afebrile, ESR remains elevated but is anemic. [place] records reviewed. Has a fistula as well with no output. Afebrile. Vitals reviewed and stable NAD Pulm: decreased at bases, otherwise CTAB CV RRR no m/g/r Abd: PEG tube in place, ostomy with stool in bag, fistula bag removed and has dressing in place, no ttp Ext: no edema Skin: Stage III sacral decub about 1 x 1.5 cm with healthy appearing tissue and was POA, no surrounding erythema, no drainage; left breast at inframammary fold with small opening and tender cyst with purulent material expressed. A/P: 80 yo debilitated woman with dementia, DMII, PAD, dynamic ileus, PEG tube, dysphagia, ostomy and fistulous output from peritoneal abscess, MRSA breast wound/cyst, sacral decub ulcer, hypothyroidism, HTN, tachycardia, PMR, GERD, UC , and chronic indwelling Storey for urinary retention, mood disorder, here with N /V and aspiration pneumonitis, low grade fever and acute hypoxemic respiratory failure to 88%. Continue CLinda for aspiration coverage and Dapto for breast wound growing MRSA resistant to clinda. No infiltrate on CXR, could consider stopping clinda all together given h/o C. diff. Wean off supplemental O2 back to baseline. From an aspiration standpoint she is very stable. Ileus-giving PEG meds and can safely restart tube feeds as ileus resolved ESR elevated > 90 -->could be falsely elevated due to anemia but need to further explore etiology but could be due to multiple factors-chronic fistulous drainage, sacral decub ulcer although does not appear infected, h/o PMR but no GARCIA or jaw claudication, aspiration PNA. Follow BCxs, Ur cx,check crp as better test. Consult Gen Surgery for breast cyst to see about I&D COuld likely be discharged back to [place] in 1-2 days. Documented By: Shilpi Bonilla
[2016-05-11] MEDS ORDERED: SODIUM CHLORIDE 0.9% IV SCH (14:00)
[2016-05-11] MEDS ORDERED: DAPTOMYCIN IV SCH (14:00)
--- NOTE | 2016-05-11 14:10 | DIAGNOSTIC IMAGING REPORT ---
KUB CLINICAL HISTORY: Ileus COMPARISON STUDY: 05/09/2016 FINDINGS: 2. Right-sided ostomies are visualized. There is a PEG tube present. There are surgical clips within the right upper quadrant consistent with a prior cholecystectomy. There are nondilated gas-filled left abdominal small bowel loops measuring up to 27 mm in diameter. IMPRESSION: Gas-filled left abdominal small bowel loops which are no longer pathologically dilated by size criteria Electronically signed by: Kishore Smalls M.D. 05/11/2016 2:08 PM Dictated Date/Time: 05/11/2016 2:07 PM
[2016-05-11] MEDS: RANITIDINE HCL SYRUP 150 MG/10 ML UDC PEG SCH (20:46)
[2016-05-11] MEDS: POTASSIUM CHLORIDE PWD 20 MEQ PACK GT SCH (20:46)
[2016-05-11] MEDS: MIRTAZAPINE TAB 15 MG TAB PEG SCH (20:47)
[2016-05-12] VITALS (14 sets, daily range): BP systolic 127–177; BP diastolic 60–99; PULSE 99–138; TEMP 36.4–36.8; O2SAT 2–97
[2016-05-12] MEDS: INSULIN ASPART 100 UNITS/ML 3 ML PEN SC SCH ×4 (00:04→18:00)
--- NOTE | 2016-05-12 00:57 | SURGICAL CONSULTATION ---
DATE OF CONSULTATION: 05/11/2016 I have been asked by Dr. Yip to see this 80-year-old female who was admitted with a diagnosis of aspiration pneumonia. She also has a sacral decubitus, that is being managed by the wound care team. She was noted to have a cyst on the undersurface of the left breast, just above the crease. There was no erythema. Her breast history is unknown in that she is not verbal. Her history was obtained from the chart. She had a diagnosis of ileus, but her most recent KUB showed nonpathologic dilatation of the small-bowel and her ileostomy has been draining large amounts according to nursing. PAST MEDICAL HISTORY: Includes carotid disease, diabetes, emphysema, hyperlipidemia, hypertension, renal artery stenosis. SURGICAL HISTORY: Unknown, but there is a PEG tube and what appears to be an ileostomy present. MEDICATIONS: Included Norvasc, ascorbic acid, Tiazac, fluconazole, Tussin, hydralazine, NovoLog, Lantus, DuoNeb, Lactinex, Synthroid, Megace, Reglan. ALLERGIES: CEFTRIAXONE. PHYSICAL EXAMINATION: GENERAL: Reveals an elderly woman who is lying comfortably. LUNGS: Clear. HEART: Regular. NECK: Supple with no adenopathy. BREASTS: Examination of the left breast revealed a small opening that was draining a purulent material. It was only a small amount. I expressed sebum as well as additional purulent material. It was mildly tender. There was no skin erythema. LABORATORY DATA: WBC 9.66, H\T\H is 10.2 and 32.2, platelet count 290,000. Sodium 135, potassium 4.3, chloride 105, CO2 18, BUN 25, creatinine 1.2, glucose 141. ASSESSMENT AND PLAN: This is a sebaceous cyst on the inferior aspect of the left breast. It spontaneously drained and I expressed the remainder of the purulent material. I do not feel that I\T\D is necessary at this time. If it continues to drain, we may need to reevaluate that. Her ileus has resolved.
[2016-05-12] MEDS: CLINDAMYCIN IV 900 MG in DEXTROSE 5% ADD-VANTAGE 100ML 100 ML IV SCH ×2 (02:20→11:13)
[2016-05-12] MEDS: LEVALBUTEROL 1.25MG/0.5ML NEB INH SCH ×4 (02:55→19:24)
[2016-05-12] MEDS: IPRATROPIUM BROMIDE NEB SOLN 0.02% 2.5 ML VIAL INH SCH ×4 (02:55→19:23)
[2016-05-12] MEDS: LEVOTHYROXINE 112 MCG TAB PEG SCH (06:12)
[2016-05-12 06:28] LABS: HEMATOCRIT 34.2 % (37-47); MEAN CELL VOLUME 81.6 fL (80-100); MEAN CORPUSCULAR HEMOGLOBIN 26.7 pg (25-34); MEAN CORPUSCULAR HGB CONC 32.7 g/dl (32-36); MEAN PLATELET VOLUME 10.6 fL (7.4-10.4); PLATELET COUNT 310 K/uL (130-400); RED BLOOD COUNT 4.19 M/uL (4.2-5.4)
[2016-05-12] MEDS: POTASSIUM CHLORIDE INJ 20 MEQ in DEXTROSE 5% 1000ML 1,000 ML IV SCH (06:37)
--- NOTE | 2016-05-12 06:43 | Clinical Documentation Query ---
CLINICAL DOCUMENTATION QUERY Dr. REYES, Patient was admitted on 05/08/16. Progress note on 05/11/16 documents presence of sacral decubitus ulcer. WOCN consult indicates it is a stage III pressure ulcer. ( x ) Sacral pressure ulcer, stage III, POA ( ) Sacral pressure ulcer, stage III, not POA Stage III pressure ulcers are a patient safety indicator. It is imperative that POA status of ulcer is documented. Thank You, Margarita Gonsalez RN [phone]
--- NOTE | 2016-05-12 06:44 | Clinical Documentation Query ---
CLINICAL DOCUMENTATION QUERY Dr. MERIDA, Pt was admitted on 05/08/16. Progress note on 05/11/16 documents presence of sacral decubitus ulcer.WOCN consult indicates it is a stage III pressure ulcer. ( ) Sacral pressure ulcer, stage III, POA ( ) Sacral pressure ulcer, stage III, not POA Stage III pressure ulcers are a patient safety indicator. It is imperative that POA status of ulcer is documented. Thank You, Margarita Gonsalez RN [phone]
[2016-05-12 07:01] LABS: BUN/CREATININE RATIO 16.5 (10-20); C-REACTIVE PROTEIN 2.74 mg/dl (0-0.29); CREATININE 1.3 mg/dl (0.60-1.20); POTASSIUM 4.8 mmol/L (3.5-5.1)
[2016-05-12] MEDS ORDERED: ASCORBIC ACID 500 MG TAB PEG SCH (10:00)
[2016-05-12] MEDS ORDERED: FLUCONAZOLE SUSP 40 MG/ML 35 ML PEG SCH (10:00)
[2016-05-12] MEDS ORDERED: PROSOURCE NOCARB 30ML/PKT PEG SCH ×2 (10:00→12:15)
[2016-05-12] MEDS ORDERED: LACTOBACILLUS ACIDOPHILUS (FLORANEX) TAB PO SCH (10:00)
[2016-05-12] MEDS ORDERED: METOCLOPRAMIDE HCL 10 MG/10 ML UDC PEG SCH (10:00)
[2016-05-12] MEDS ORDERED: AMLODIPINE BESYLATE 5 MG TAB PEG SCH (10:00)
[2016-05-12] MEDS ORDERED: ZINC SULFATE 220 MG CAP PO SCH (10:00)
[2016-05-12] MEDS ORDERED: SERTRALINE HCL 50 MG TAB PEG SCH (10:00)
[2016-05-12] MEDS ORDERED: MEGESTROL ACETATE 400 MG/10 ML UDP GT SCH (10:00)
[2016-05-12] MEDS ORDERED: MULTIVITAMINS W/MINERALS LIQUID GT SCH (10:00)
--- NOTE | 2016-05-12 11:17 | Discharge Instructions ---
Discharge Instructions Admission Reason for Admission: Aspiration Pneumonitis, Sbo Discharge Discharge Diagnosis / Problem: Aspiration pneumonitis, adynamic ileus, SBO, infected cyst of left breast Discharge Goals Goal(s): Decrease discomfort, Improve function Activity Recommendations Activity Limitations: resume your previous activity . 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 Aspiration pneumonitis sec to N/V : - was on clindamycin for 3 days , was discontinued as she doesn't have an infiltrate on CXR MRSA positive left breast infected cyst: - G stain of wound: Corynebacterium and enterococcus - Received Daptomycin , switch to linezolid - General surgery was consulted - did not require I&D per GS might need to follow up with GS as needed Sacral decubitus ulcer stage 3 POA appears clean - wound care consult- was cleaned and dressed by WCN this morning Adynamic ileus with h/o SBO - tube feeds were held and KUB on 05/11 negative for ileus - Restart tube feeds h/o Cdiff: was treated with oral metronidazole recently - C. diff rechecked - negative Hypertension: - continue amlodipine 5 mg , hydralazine 25 mg q8h through peg tube Diabetes mellitus - Holding insulin until restart tube feeds . On Lantus 23 units subcutaneous twice a day, place on Accu-Cheks before meals and at bedtime with NovoLog coverage. Hypothyroidism: - levothyroxine via PEG tube Gastroparesis: - continue Reglan 5 mg per PEG TID Depression/insomnia - continue sertraline 50 mg per PEG daily, and mirtazapine SolTab 15 mg per PEG at bedtime. GERD - continue ranitidine 10 ML's per PEG at bedtime. Chronic pain - continue oxycodone 5 mg per PEG every 4 hours. Yeast prophylaxis--continue fluconazole 200 mg per PEG QAM discharge was cancelled after patient developed an acute event Current Hospital Diet Patient's current hospital diet: Discharge Diet Recommended Diet: N/A (resume tube feeds) Pending Studies Studies pending at discharge: no Laboratory Results Hemoglobin A1c Test 03/04/16 05:25 Range/Units Estimated Average Glucose 154 mg/dl Hemoglobin A1c 7.0 H 4.5-5.6 % Medical Emergencies . Who to Call and When: Medical Emergencies: If at any time you feel your situation is an emergency, please call 911 immediately. . Non-Emergent Contact Non-Emergency issues call your: Primary Care Provider . . "Provider Documentation" section prepared by Purvi Yip. VTE Core Measure Inpt VTE Proph given/why not?: SCD's
[2016-05-12] MEDS ORDERED: MULTIVITAMINS W/MINERALS LIQUID GT ONE (11:30)
[2016-05-12] MEDS ORDERED: FLUCONAZOLE SUSP 40 MG/ML 35 ML PEG ONE (11:30)
[2016-05-12] MEDS ORDERED: IMPACT LIQ 1000 ML BAG PEG SCH (12:15)
[2016-05-12] MEDS: LACTOBACILLUS ACIDOPHILUS (FLORANEX) TAB PO SCH ×2 (13:43→21:02)
[2016-05-12] MEDS: METOCLOPRAMIDE HCL 10 MG/10 ML UDC PEG SCH ×2 (13:43→21:01)
[2016-05-12 14:05] LABS: BUN/CREATININE RATIO 18.1 (10-20); CALCIUM 9.4 mg/dl (8.5-10.1); CREATININE 1.3 mg/dl (0.60-1.20); POTASSIUM 4.2 mmol/L (3.5-5.1)
[2016-05-12] MEDS ORDERED: LINE1TAB6 PEG ×2 (14:06)
--- NOTE | 2016-05-12 14:37 | Family Medicine Progress Note ---
Progress Note Date of Service May 12, 2016. Subjective Pt evaluation today including: conversation w/ patient, physical exam, chart review, lab review Pain: well controlled Doing better. Discharge planned for today. Constitutional: No chills, No fever Eyes: No worsening of vision ENT: No hearing loss Respiratory: No cough, No sputum Cardiovascular: No chest pain Abdomen: No nausea, No pain, No vomiting Female : No dysuria Neurologic: No memory loss Psychiatric: No depression symptoms Medications Current Inpatient Medications Medications (Trade) Dose Ordered Sig/Aicha Route Start Time Stop Time Status Last Admin Dose Admin Bacitracin/ Polymyxin B Sulfate (Polysporin Oint) 1 appln BID EXT 05/09/16 09:00 06/08/16 08:59 05/12/16 21:04 1 APPLN Bisacodyl (Dulcolax Supp) 10 mg DAILY PRN NV 05/08/16 22:00 06/07/16 21:59 Diphenhydramine HCl (Benadryl Syrup) 12.5 mg Q4 PRN PEG 05/08/16 22:00 06/07/16 21:59 05/12/16 13:44 12.5 MG Sertraline HCl (Zoloft Tab) 50 mg DAILY PEG 05/09/16 09:00 06/08/16 08:59 05/11/16 07:38 50 MG Sodium Biphosphate/ Sodium Phosphate (Fleet Enema) 132 ml DAILY PRN NV 05/08/16 22:00 06/07/16 21:59 Sterile Water (Tube Feeding Water Flush) 1 ea BID PEG 05/09/16 09:00 06/08/16 08:59 Future Hold 05/11/16 07:43 1 EA Polyethylene (Miralax Powder Packet) 17 gm Q12 PRN PEG 05/08/16 22:00 06/07/16 21:59 Ondansetron HCl (Zofran Inj) 4 mg Q6H PRN IV 05/08/16 22:00 06/07/16 21:59 05/12/16 19:29 4 MG Glucose (Glucose 40% Gel) UD PRN PO 05/08/16 22:00 06/07/16 21:59 Glucose (Glucose Chew Tab) 1 tabs UD PRN PO 05/08/16 22:00 06/07/16 21:59 Dextrose (Dextrose 50% 50ML Syringe) 50 ml UD PRN IV 05/08/16 22:00 06/07/16 21:59 Glucagon (Glucagon Inj) 1 mg UD PRN SQ 05/08/16 22:00 06/07/16 21:59 Ipratropium [place] (Atrovent 0.02% 0.5MG/2.5ML Neb) 0.5 mg Q2H PRN INH 05/08/16 22:30 06/07/16 22:29 Levalbuterol (Xopenex 1.25MG/ 0.5ML Neb) 1.25 mg Q2H PRN INH 05/08/16 22:30 06/07/16 22:29 Metoclopramide HCl 10 mg 10 mg TID PEG 05/09/16 09:00 06/08/16 08:59 05/12/16 21:01 10 MG Lorazepam 0.5 mg/ Syringe 1 ml @ 1 mls/min Q4 PRN IV 05/12/16 15:15 06/11/16 15:14 Promethazine HCl/ Sodium Chloride (Phenergan Inj/ Nss 50ml) 51 ml @ 204 mls/hr Q6H PRN IV 05/12/16 21:45 06/11/16 21:44 Glycopyrrolate 0.2 mg 0.2 mg Q4H PRN IV. 05/12/16 23:15 06/11/16 23:14 Morphine Sulfate/ Dextrose (Morphine Sulf/ Nss 250MG/250ML) 250 ml @ 2 mls/hr Q24H PRN IV 05/13/16 00:00 05/27/16 00:00 05/13/16 00:21 1 MLS/HR Objective Vital Signs Date Time Temp Pulse Resp B/P Pulse Ox O2 Delivery O2 Flow Rate FiO2 05/12/16 20:38 36.7 120 20 156/60 96 05/12/16 20:00 Nasal Cannula 2.0 05/12/16 17:33 36.6 122 30 129/60 95 Nasal Cannula 2.0 05/12/16 16:19 36.8 125 33 140/68 94 Nasal Cannula 2.0 05/12/16 15:14 36.4 129 24 138/86 95 Nasal Cannula 1.5 05/12/16 14:52 138 2 Nasal Cannula 4.0 05/12/16 14:43 94 Nasal Cannula 2.0 05/12/16 14:40 36.4 136 177/99 92 Room Air 05/12/16 14:13 117 18 95 Room Air 05/12/16 13:25 36.8 103 20 96 Room Air 05/12/16 11:23 Room Air 05/12/16 08:01 36.8 103 20 142/77 96 Room Air 05/12/16 07:35 99 18 95 Room Air Physical Exam General Appearance: WD/WN, no apparent distress Eyes: normal inspection ENT: normal ENT inspection, hearing grossly normal Neck: supple Respiratory/Chest: chest non-tender, no respiratory distress, + wheezing Cardiovascular: regular rate, rhythm Abdomen: normal bowel sounds, + tenderness Neurologic/Psychiatric: alert, normal mood/affect, oriented x 3 Skin: normal color Laboratory Results Last 24 Hours Test 05/12/16 11:37 05/12/16 13:05 05/12/16 14:54 05/12/16 16:10 Bedside Glucose 190 mg/dl Sodium Level 133 mmol/L Potassium Level 4.2 mmol/L Chloride Level 106 mmol/L Carbon Dioxide Level 12 mmol/L Anion Gap 15.0 mmol/L Blood Urea Nitrogen 24 mg/dl Creatinine 1.30 mg/dl Est Creatinine Clear Calc Drug Dose 26.4 ml/min Estimated GFR () 44.2 Estimated GFR (Non- 38.2 BUN/Creatinine Ratio 18.1 Random Glucose 183 mg/dl Calcium Level 9.4 mg/dl Lactic Acid Level 4.0 mmol/L Arterial Blood pH 7.36 Arterial Blood Partial Pressure CO2 27 mmHg Arterial Blood Partial Pressure O2 68 mm/Hg Arterial Blood HCO3 15 mmol/L Arterial Blood Oxygen Saturation 91.7 % Arterial Blood Base Excess -9.3 mEq/L Arterial Blood Gas Delivery 1.5L Moncho Test POS Test 05/12/16 20:13 Sodium Level 136 mmol/L Potassium Level 4.2 mmol/L Chloride Level 106 mmol/L Carbon Dioxide Level 15 mmol/L Anion Gap 15.0 mmol/L Blood Urea Nitrogen 23 mg/dl Creatinine 1.30 mg/dl Est Creatinine Clear Calc Drug Dose 26.4 ml/min Estimated GFR () 44.2 Estimated GFR (Non- 38.2 BUN/Creatinine Ratio 17.6 Random Glucose 152 mg/dl Lactic Acid Level 1.1 mmol/L Calcium Level 9.2 mg/dl Total Creatine Kinase 71 U/L Creatine Kinase MB 3.5 ng/ml Creatine Kinase MB Ratio 4.9 Troponin I < 0.015 ng/ml Assessment and Plan 80 y/o F resident of [facility] with multiple comorbidities including h/o bowel ischemia /UC s/p colostomy, fistula tube , HTN, DM, who was on IV vancomycin for MRSA infected cyst in left breast and had nausea and vomiting presented to ED with complaint of shortness of breath that began earlier in the day prior to arrival. The patient was to be discharged today but will awaiting transportation, she received a breathing treatment and was in rep distress, anxious and her saturations dropped to 93 on RA, O2 was restarted and her lactate was at 4. She seemed to be in distress and had abdominal tenderness seemed to worsen. With concerns of a h/o bowel ischemia, Ct abdomen was ordered and general surgery was consulted. had just restarted tube feeds but she hadn't received them yet, will hold off for now Abdominal tenderness: h/o bowel ischemia: Ct abdomen/pelvis: . No bowel wall thickening or obstruction. 2. No pneumatosis to suggest ischemic bowel. 3. Postoperative changes as described above. The fat stranding/inflammatory change near the right lower quadrant bowel anastomosis has significantly improved. 4. Bilateral lower lobe tree-in-bud nodular opacities. This suggests a mild infectious bronchiolitis. - General surgery consulted - IV Zosyn - transferred back to telemetry Aspiration pneumonitis sec to N/V : - clindamycin 900 mg IV q8h dc, no infiltrate on CXR MRSA positive left breast infected cyst: - Dc daptomycin - Consult General surgery- No I&d nedded per GS - Wound care per WCN Sacral decubitus ulcer stage 3: appears clean - wound care nurse involved Adynamic ileus: has a h/o SBO - KUB today- WNL - currently held h/o Cdiff: was treated with oral metronidazole recently - will recheck for C.diff- negative Hypertension: - continue amlodipine 5 mg , hydralazine 25 mg q8h through peg tube Diabetes mellitus - Holding insulin until restart tube feeds . On Lantus 23 units subcutaneous twice a day, place on Accu-Cheks before meals and at bedtime with NovoLog coverage. Hypothyroidism: - levothyroxine via PEG tube Gastroparesis: - continue Reglan 5 mg per PEG TID Depression/insomnia - continue sertraline 50 mg per PEG daily, and mirtazapine SolTab 15 mg per PEG at bedtime. GERD - continue ranitidine 10 ML's per PEG at bedtime. Chronic pain - continue oxycodone 5 mg per PEG every 4 hours. Yeast prophylaxis--continue fluconazole 200 mg per PEG every morning. SCD disposition: med/surg Reviewed: Pt Seen/Exam by YULISSA Machado Notes, Labs, RAD History Resident Physician Supervision Note: I was present with Dr. Yip during the history and exam. I discussed the case with the resident and agree with the findings and plan as documented in the note. Any exceptions or clarifications are listed here: Pt decompensated today with tachycardia, tachypnea, hypoxia, elevated lactate, met acidosis, abg with normal pH, with tenderness on abd exam and concern for ischemic bowel recurrence. CT abd/pel without evidence of this. Was bolused with IVFs, repeat lactate improved, given diltiazem as well for persistent tachycardia, afebrile. Lungs with crackles at bases, sinus tach on ECG, trop neg. Kendrick BCxs and started on broad spectrum abx as well again. Could be GI related but not sure of source of sepsis. Long d/w and daughters and they have signed POLST form asking for DNR/DNI and comfort measures if prognosis poor. Will see how she does through the evening but guarded prognosis Documented By: Shilpi Bonilla
[2016-05-12] MEDS ORDERED: DAPTOMYCIN IV SCH (15:00)
[2016-05-12] MEDS ORDERED: LORAZEPAM 2 MG/ML 1 ML VIAL IV PRN (15:00)
[2016-05-12] MEDS ORDERED: SODIUM CHLORIDE 0.9% IV SCH (15:00)
[2016-05-12] MEDS ORDERED: LORAZEPAM INJ 0.5 MG in SYRINGE 0.75 ML IV PRN (15:15)
--- NOTE | 2016-05-12 15:52 | DIAGNOSTIC IMAGING REPORT ---
CHEST ONE VIEW PORTABLE CLINICAL HISTORY: shortness of breath WHEEZING COMPARISON STUDY: 05/08/2016 FINDINGS: The heart is normal in size. There is no focal pulmonary consolidation. There is no failure. There are no pleural effusions.[ IMPRESSION: No active disease in the chest. Electronically signed by: Kishore Smalls M.D. 05/12/2016 3:50 PM Dictated Date/Time: 05/12/2016 3:47 PM
[2016-05-12] MEDS ORDERED: SODIUM CHLORIDE 0.9% 1000ML 1,000 ML IV SCH (16:00)
[2016-05-12] MEDS ORDERED: OPTIRAY 320 IV PRN (16:00)
[2016-05-12] MEDS ORDERED: PIPERACILL/TAZOBAC IV 3.375 GM in DEXTROSE 5% 100ML 100 ML IV ONE (16:15)
[2016-05-12] MEDS: SODIUM CHLORIDE 0.9% 1000ML 1,000 ML IV SCH ×2 (16:15→21:01)
[2016-05-12] MEDS ORDERED: PIPERACILL/TAZOBAC CONSULT ACTIVE PRN (16:30)
[2016-05-12 16:32] LABS: ARTERIAL BLD GAS O2 SATURATION 91.7 % (90-95); ARTERIAL BLOOD GAS BASE EXCESS -9.3 mEq/L (-9-1.8); ARTERIAL BLOOD GAS HCO3 15 mmol/L (19-24); ARTERIAL BLOOD GAS PO2 68 mm/Hg (80-95); ARTERIAL BLOOD GAS pH 7.36 (7.35-7.45)
[2016-05-12 16:33] LABS: ALLEN TEST POS (POS); O2 ADMINISTRATION 1.5L
--- NOTE | 2016-05-12 17:12 | DIAGNOSTIC IMAGING REPORT ---
ABDOMEN AND PELVIS CT WITH IV CONTRAST CT DOSE: 313.11 mGy.cm HISTORY: Generalized abdominal pain. r/o ischemic bowel TECHNIQUE: Multiaxial CT images of the abdomen and pelvis were performed following the use of intravenous contrast. COMPARISON STUDY: Abdomen and pelvis CT 02/27/2016. FINDINGS: Mild motion artifact. Tree-in-bud nodular opacities within the bilateral lower lobes. A gastrostomy tube is in good position. No pneumoperitoneum. No pneumatosis. Small focus of gas within the bladder lumen. This is likely due to the Purdy catheter located within the bladder. Mild fullness within the distal left ureter which is similar to the prior study. There may be a left-sided ureterocele. No suspicious lytic or blastic osseous lesions. No dilated loops of bowel to suggest an obstruction. Mild fat stranding at the right lower quadrant bowel anastomosis. This has improved in the interval. Prior subtotal colectomy with right lower quadrant ostomy. There are multiple diverticula in the residual sigmoid colon. The uterus and bilateral adnexa are unremarkable. No pelvic free fluid. Cholecystectomy. The liver, spleen, adrenal glands, and pancreas are unremarkable. Mild bilateral perinephric edema is likely chronic. No hydronephrosis. No retroperitoneal lymphadenopathy. Moderate to severe calcified plaque within the aorta and iliac arteries. IMPRESSION: 1. No bowel wall thickening or obstruction. 2. No pneumatosis to suggest ischemic bowel. 3. Postoperative changes as described above. The fat stranding/inflammatory change near the right lower quadrant bowel anastomosis has significantly improved. 4. Bilateral lower lobe tree-in-bud nodular opacities. This suggests a mild infectious bronchiolitis. Electronically signed by: Calderon Beatty M.D. 05/12/2016 5:10 PM Dictated Date/Time: 05/12/2016 4:57 PM
--- NOTE | 2016-05-12 17:23 | Surgery Progress Note ---
Surgery Progress Note Date of Service May 12, 2016. Subjective I got a call from Dr. 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, ileostomy, PFG, Objective Vital Signs: Date Time Temp Pulse Resp B/P Pulse Ox O2 Delivery O2 Flow Rate FiO2 05/12/16 15:14 36.4 129 24 138/86 95 Nasal Cannula 1.5 05/12/16 14:52 138 2 Nasal Cannula 4.0 05/12/16 14:43 94 Nasal Cannula 2.0 05/12/16 14:40 36.4 136 177/99 92 Room Air 05/12/16 14:13 117 18 95 Room Air 05/12/16 13:25 36.8 103 20 96 Room Air 05/12/16 11:23 Room Air 05/12/16 08:01 36.8 103 20 142/77 96 Room Air 05/12/16 07:35 99 18 95 Room Air 05/12/16 02:55 102 18 95 Room Air 05/12/16 00:41 36.6 99 18 127/72 95 Room Air 05/12/16 00:00 97 Room Air 05/11/16 20:09 89 18 95 Room Air 05/11/16 20:00 97 Room Air General Appearance: WD/WN Head: normocephalic Neck: supple Respiratory/Chest: chest non-tender, lungs clear Cardiovascular: regular rate, rhythm, no JVD, no murmur, + tachycardia Abdomen: normal bowel sounds, non tender, non distended, soft (ileiostomy- some liquid fluid, no bloody stool, the ileiostomy is pink, ) Extremities: normal range of motion, non-tender Laboratory Results: Results Past 24 Hours Test 05/11/16 17:59 05/12/16 00:01 05/12/16 05:50 05/12/16 05:55 Range/Units Bedside Glucose 150 163 174 70-90 mg/dl White Blood Count 13.10 4.8-10.8 K/uL Red Blood Count 4.19 4.2-5.4 M/uL Hemoglobin 11.2 12.0-16.0 g/dL Hematocrit 34.2 37-47 % Mean Corpuscular Volume 81.6 80-100 fL Mean Corpuscular Hemoglobin 26.7 25-34 pg Mean Corpuscular Hemoglobin Concent 32.7 32-36 g/dl RDW Standard Deviation 57.3 36.4-46.3 fL RDW Coefficient of Variation 19.4 11.5-14.5 % Platelet Count 310 130-400 K/uL Mean Platelet Volume 10.6 7.4-10.4 fL Sodium Level 132 136-145 mmol/L Potassium Level 4.8 3.5-5.1 mmol/L Chloride Level 105 98-107 mmol/L Carbon Dioxide Level 15 21-32 mmol/L Anion Gap 12.0 3-11 mmol/L Blood Urea Nitrogen 21 7-18 mg/dl Creatinine 1.30 0.60-1.20 mg/dl Est Creatinine Clear Calc Drug Dose 26.4 ml/min Estimated GFR () 44.2 Estimated GFR (Non- 38.2 BUN/Creatinine Ratio 16.5 10-20 Random Glucose 186 70-99 mg/dl Calcium Level 9.0 8.5-10.1 mg/dl C-Reactive Protein 2.74 0-0.29 mg/dl Test 05/12/16 11:37 05/12/16 13:05 05/12/16 14:54 05/12/16 16:10 Range/Units Bedside Glucose 190 70-90 mg/dl Sodium Level 133 136-145 mmol/L Potassium Level 4.2 3.5-5.1 mmol/L Chloride Level 106 98-107 mmol/L Carbon Dioxide Level 12 21-32 mmol/L Anion Gap 15.0 3-11 mmol/L Blood Urea Nitrogen 24 7-18 mg/dl Creatinine 1.30 0.60-1.20 mg/dl Est Creatinine Clear Calc Drug Dose 26.4 ml/min Estimated GFR () 44.2 Estimated GFR (Non- 38.2 BUN/Creatinine Ratio 18.1 10-20 Random Glucose 183 70-99 mg/dl Calcium Level 9.4 8.5-10.1 mg/dl Arterial Blood pH 7.36 7.35-7.45 Arterial Blood Partial Pressure CO2 27 35-46 mmHg Arterial Blood Partial Pressure O2 68 80-95 mm/Hg Arterial Blood HCO3 15 19-24 mmol/L Arterial Blood Oxygen Saturation 91.7 90-95 % Arterial Blood Base Excess -9.3 -9-1.8 mEq/L Arterial Blood Gas Delivery 1.5L Moncho Test POS POS Microbiology Results 05/12/16 Blood Culture, Era Batch Pending 05/12/16 Blood Culture, Era Batch Pending 05/11/16 C.difficile Toxin B Gene (PCR) - Final, Complete No C. difficile toxin B gene detected Assessment & Plan IMP tachycardia, possible ischemic bowel CT scan now, transfer to ICU, Iv fluid , IV antibiotic, Purdy pt is DNR will F/U CT scan, IMPRESSION: 1. No bowel wall thickening or obstruction. 2. No pneumatosis to suggest ischemic bowel. 3. Postoperative changes as described above. The fat stranding/inflammatory change near the right lower quadrant bowel anastomosis has significantly improved. 4. Bilateral lower lobe tree-in-bud nodular opacities. This suggests a mild infectious bronchiolitis. Plan- continue medical treatment, will F/U
[2016-05-12] MEDS ORDERED: NURSING VERBAL MED ORDER ONE ×2 (19:00→19:15)
[2016-05-12] MEDS ORDERED: DILTIAZEM HCL 5 MG/ML 5 ML VIAL IV PRN (19:15)
[2016-05-12] MEDS ORDERED: DILTIAZEM HCL 120 MG EXT REL CAP PEG ONE (19:15)
[2016-05-12 20:43] LABS: BUN/CREATININE RATIO 17.6 (10-20); CALCIUM 9.2 mg/dl (8.5-10.1); CREATININE 1.3 mg/dl (0.60-1.20); POTASSIUM 4.2 mmol/L (3.5-5.1)
[2016-05-12] MEDS: RANITIDINE HCL SYRUP 150 MG/10 ML UDC PEG SCH (21:02)
[2016-05-12] MEDS: MIRTAZAPINE TAB 15 MG TAB PEG SCH (21:03)
[2016-05-12] MEDS: POTASSIUM CHLORIDE PWD 20 MEQ PACK GT SCH (21:03)
[2016-05-12] MEDS: BACITRACIN/POLYMYXIN B OINT 15 GM TUBE EXT SCH (21:04)
[2016-05-12] MEDS: ASCORBIC ACID 500 MG TAB PEG SCH (21:04)
[2016-05-12 21:34] LABS: CKMB/CK RATIO 4.9 (0-3.0)
[2016-05-12] MEDS ORDERED: DILTIAZEM HCL 5 MG/ML 5 ML VIAL IV STA (21:44)
[2016-05-12] MEDS ORDERED: PROMETHAZINE HCL INJ 25 MG in SODIUM CHLORIDE 0.9% 50ML 50 ML IV PRN (21:45)
[2016-05-12] MEDS ORDERED: PIPERACILL/TAZOBAC IV 3.375 GM in DEXTROSE 5% 100ML 100 ML IV SCH (22:00)
[2016-05-12] MEDS ORDERED: PROMETHAZINE HCL INJ 25 MG in SODIUM CHLORIDE 0.9% 50ML 50 ML IV STA (22:03)
[2016-05-12] MEDS ORDERED: DILTIAZEM HCL 120 MG ER CAP PEG STA (22:04)
[2016-05-12] MEDS ORDERED: DILTIAZEM HCL 120 MG CAPCR PEG ONE (22:15)
[2016-05-12] MEDS ORDERED: GLYCOPYRROLATE INJ 0.2 MG/ML VIAL IV ONE (23:15)
[2016-05-12] MEDS ORDERED: GLYCOPYRROLATE INJ 0.2 MG/ML VIAL IV. PRN (23:15)
[2016-05-12] MEDS ORDERED: MoRPHine SULFATE 4 MG/ML 1 ML CARP\\VIAL IV STA (23:15)
[2016-05-12] MEDS ORDERED: LORAZEPAM 2 MG/ML 1 ML VIAL IV STA (23:18)
--- NOTE | 2016-05-12 23:27 | Progress Note ---
Progress Note RESIDENT NIGHT COVERAGE PROGRESS NOTE Asked to see patient for altered mental status, and to discuss care w/family On discussion w/family, pt has had a long decline over the last 15 months, they are open to comfort care if needed. Over the last few hours she has been tachycardic, and had a lot of vomiting whenever something was placed in her PEG tube. They agree that although this is similar to when the patient had ischemic bowel, she would not want dramatic interventions. Her breathing has gotten significantly faster, and her mental status is changing as well. O/E Vital signs per EMR General: Awake, mumbling words Chest: Hoarse, diffuse breath sounds. On NC. CVS: Tachycardic, regular rate. Upper extremities cold. Abd: Distended, soft, nontender. Ext: Good peripheral pulses. Nontender. Assessment: We discussed with the family and they agreed that they would prefer for her to be more comfortable. She is DNR/DNI. PLAN: - No further medications via PEG tube - Stop IV fluids, turn off monitor screen in room. - Morphine 4mg IV, will see how she responds and start a drip if needed - Ativan 0.5mg IV q4h PRN. - Glycopyrrolate 0.2mg q4h PRN secretions - Plan discussed with two daughters at patients bedside and all are in agreement. Updated nurse. - Will return to check on patient - overnight I can be paged or called at [phone] for any immediate needs.
[2016-05-13] MEDS: MoRPHine SULF/NSS 250MG/250ML 250 ML IV PRN ×3 (00:21→21:25)
[2016-05-13] MEDS: IPRATROPIUM BROMIDE NEB SOLN 0.02% 2.5 ML VIAL INH SCH (02:14)
[2016-05-13] MEDS: LEVALBUTEROL 1.25MG/0.5ML NEB INH SCH (02:14)
[2016-05-13] MEDS ORDERED: NURSING VERBAL MED ORDER ONE (03:45)
[2016-05-13] MEDS: MULTIVITAMINS W/MINERALS LIQUID GT SCH (08:00)
[2016-05-13] MEDS: METOCLOPRAMIDE HCL 10 MG/10 ML UDC PEG SCH ×3 (08:00→19:16)
[2016-05-13] MEDS: SERTRALINE HCL 50 MG TAB PEG SCH (08:00)
[2016-05-13] MEDS: BACITRACIN/POLYMYXIN B OINT 15 GM TUBE EXT SCH ×2 (08:03→19:15)
[2016-05-13] MEDS ORDERED: DILTIAZEM HCL 120 MG EXT REL CAP PEG SCH (09:00)
--- NOTE | 2016-05-13 18:28 | Family Medicine Progress Note ---
Progress Note Date of Service May 13, 2016. Subjective Pt evaluation today including: conversation w/ family Voiding: storey catheter in place 80 y/o F resident of [facility] with multiple comorbidities including h/o bowel ischemia /UC s/p colostomy, fistula tube , HTN, DM, who was on IV vancomycin for MRSA infected cyst in left breast and had nausea and vomiting presented to ED with complaint of shortness of breath that began earlier in the day prior to arrival. The patient was to be discharged today but will awaiting transportation, she received a breathing treatment and was in rep distress, anxious and her saturations dropped to 93 on RA, O2 was restarted and her lactate was at 4. She seemed to be in distress and had abdominal tenderness seemed to worsen. With concerns of a h/o bowel ischemia, Ct abdomen was ordered and general surgery was consulted. family decided to make her comfort care only considering her h/o ischemic bowel . appears comfortable Additional Comments: unable to obtain Medications Current Inpatient Medications Medications (Trade) Dose Ordered Sig/Aicha Route Start Time Stop Time Status Last Admin Dose Admin Bacitracin/ Polymyxin B Sulfate (Polysporin Oint) 1 appln BID EXT 05/09/16 09:00 06/08/16 08:59 05/13/16 08:03 1 APPLN Bisacodyl (Dulcolax Supp) 10 mg DAILY PRN AL 05/08/16 22:00 06/07/16 21:59 Diphenhydramine HCl (Benadryl Syrup) 12.5 mg Q4 PRN PEG 05/08/16 22:00 06/07/16 21:59 05/12/16 13:44 12.5 MG Sodium Biphosphate/ Sodium Phosphate (Fleet Enema) 132 ml DAILY PRN AL 05/08/16 22:00 06/07/16 21:59 Sterile Water (Tube Feeding Water Flush) 1 ea BID PEG 05/09/16 09:00 06/08/16 08:59 Future Hold 05/11/16 07:43 1 EA Polyethylene (Miralax Powder Packet) 17 gm Q12 PRN PEG 05/08/16 22:00 06/07/16 21:59 Ondansetron HCl (Zofran Inj) 4 mg Q6H PRN IV 05/08/16 22:00 06/07/16 21:59 05/12/16 19:29 4 MG Glucose (Glucose 40% Gel) UD PRN PO 05/08/16 22:00 06/07/16 21:59 Glucose (Glucose Chew Tab) 1 tabs UD PRN PO 05/08/16 22:00 06/07/16 21:59 Dextrose (Dextrose 50% 50ML Syringe) 50 ml UD PRN IV 05/08/16 22:00 06/07/16 21:59 Glucagon (Glucagon Inj) 1 mg UD PRN SQ 05/08/16 22:00 06/07/16 21:59 Ipratropium Flushing (Atrovent 0.02% 0.5MG/2.5ML Neb) 0.5 mg Q2H PRN INH 05/08/16 22:30 06/07/16 22:29 Levalbuterol (Xopenex 1.25MG/ 0.5ML Neb) 1.25 mg Q2H PRN INH 05/08/16 22:30 06/07/16 22:29 Metoclopramide HCl 10 mg 10 mg TID PEG 05/09/16 09:00 06/08/16 08:59 05/12/16 21:01 10 MG Lorazepam 0.5 mg/ Syringe 1 ml @ 1 mls/min Q4 PRN IV 05/12/16 15:15 06/11/16 15:14 Promethazine HCl/ Sodium Chloride (Phenergan Inj/ Nss 50ml) 51 ml @ 204 mls/hr Q6H PRN IV 05/12/16 21:45 06/11/16 21:44 Glycopyrrolate 0.2 mg 0.2 mg Q4H PRN IV. 05/12/16 23:15 06/11/16 23:14 Morphine Sulfate/ Dextrose (Morphine Sulf/ Nss 250MG/250ML) 250 ml @ 2 mls/hr Q24H PRN IV 05/13/16 00:00 05/27/16 00:00 05/13/16 21:25 4 MLS/HR Objective Vital Signs Date Time Temp Pulse Resp B/P Pulse Ox O2 Delivery O2 Flow Rate FiO2 05/13/16 15:15 Nasal Cannula 2.0 05/13/16 07:40 Nasal Cannula 2.0 Physical Exam General Appearance: WD/WN Eyes: normal inspection Respiratory/Chest: normal breath sounds, + wheezing Cardiovascular: regular rate, rhythm Abdomen: normal bowel sounds, soft Assessment and Plan 80 y/o F resident of [facility] with multiple comorbidities including h/o bowel ischemia /UC s/p colostomy, fistula tube , HTN, DM, who was on IV vancomycin for MRSA infected cyst in left breast and had nausea and vomiting presented to ED with complaint of shortness of breath that began earlier in the day prior to arrival. The patient was to be discharged yesterday but will awaiting transportation, she received a breathing treatment and was in rep distress, anxious and her saturations dropped to 93 on RA, O2 was restarted and her lactate was at 4. She seemed to be in distress and had abdominal tenderness seemed to worsen. With concerns of a h/o bowel ischemia, Ct abdomen was ordered and general surgery was consulted. had just restarted tube feeds but she hadn't received them yet, will hold off for now Currently on comfort measures only No further medications via PEG tube - IVF dc - Morphine drip - Ativan 0.5mg IV q4h PRN. - Glycopyrrolate 0.2mg q4h PRN secretions DNR Might be moved to inpatient hospice Reviewed: Pt Seen/Exam by , YULISSA Notes, Labs, RAD History Resident Physician Supervision Note: I interviewed and examined the patient. Discussed with Dr. Dangelo (from overnight coverage) and Phi and agree with findings and plan as documented in the note. Any exceptions or clarifications are listed here: Pt continued to decompensate last night with tachypnea, tachycardia. Lactate did come down with IVFs but remained in distress, CT abd with no clear ischemia or evidence of infection, however family reports this is how her ischemic bowel presented last year. it was more subtle. They have elected to place her on comfort measures and do not desire any further evaluation or treatment other than comfort care. I agree with this plan along with them given her chronic multiple comorbidities and guarded prognosis. Documented By: Shilpi Bonilla
--- NOTE | 2016-05-14 04:40 | Progress Note ---
Progress Note RESIDENT APPLE PEELER OPERATOR COVERAGE NOTE Went to visit patient multiple times overnight, had lots of family present initially then later with two daughters Both report pt looks comfortable, but has had some moaning / agonal breathing Morphine drip at 6mL/hour O/E - Looks comfortable, mild response to nail bed pressure, occasional twitching / agonal breathing P - Explained to family that agonal breathing normal, but will increase morphine drip at 1mg/hour titrated to comfort Resident Tracking Resident Involvement: Field Evidence Technician Coverage Note Care Provided: Adult Hospital Medicine
[2016-05-14 07:52] VITALS: BP 152/71; PULSE 90; TEMP 36.7; O2SAT 97
[2016-05-14] MEDS: BACITRACIN/POLYMYXIN B OINT 15 GM TUBE EXT SCH ×2 (08:00→18:31)
[2016-05-14] MEDS: METOCLOPRAMIDE HCL 10 MG/10 ML UDC PEG SCH ×3 (08:00→18:32)
[2016-05-14] MEDS ORDERED: NURSING VERBAL MED ORDER ONE ×7 (11:15→22:15)
--- NOTE | 2016-05-14 17:22 | Family Medicine Progress Note ---
Progress Note Date of Service May 14, 2016. Subjective Pt evaluation today including: conversation w/ family patient made FLOWER BUNCHER OR PICKER , appears comfortable. Additional Comments: Unobtainable Medications Current Inpatient Medications Medications (Trade) Dose Ordered Sig/Aicha Route Start Time Stop Time Status Last Admin Dose Admin Bacitracin/ Polymyxin B Sulfate (Polysporin Oint) 1 appln BID EXT 05/09/16 09:00 06/08/16 08:59 05/13/16 08:03 1 APPLN Bisacodyl (Dulcolax Supp) 10 mg DAILY PRN [place] 05/08/16 22:00 06/07/16 21:59 Diphenhydramine HCl (Benadryl Syrup) 12.5 mg Q4 PRN PEG 05/08/16 22:00 06/07/16 21:59 05/12/16 13:44 12.5 MG Sodium Biphosphate/ Sodium Phosphate (Fleet Enema) 132 ml DAILY PRN FL 05/08/16 22:00 06/07/16 21:59 Sterile Water (Tube Feeding Water Flush) 1 ea BID PEG 05/09/16 09:00 06/08/16 08:59 Future Hold 05/11/16 07:43 1 EA Polyethylene (Miralax Powder Packet) 17 gm Q12 PRN PEG 05/08/16 22:00 06/07/16 21:59 Ondansetron HCl (Zofran Inj) 4 mg Q6H PRN IV 05/08/16 22:00 06/07/16 21:59 05/12/16 19:29 4 MG Glucose (Glucose 40% Gel) UD PRN PO 05/08/16 22:00 06/07/16 21:59 Glucose (Glucose Chew Tab) 1 tabs UD PRN PO 05/08/16 22:00 06/07/16 21:59 Dextrose (Dextrose 50% 50ML Syringe) 50 ml UD PRN IV 05/08/16 22:00 06/07/16 21:59 Glucagon (Glucagon Inj) 1 mg UD PRN SQ 05/08/16 22:00 06/07/16 21:59 Ipratropium [place]ancock (Atrovent 0.02% 0.5MG/2.5ML Neb) 0.5 mg Q2H PRN INH 05/08/16 22:30 06/07/16 22:29 Levalbuterol (Xopenex 1.25MG/ 0.5ML Neb) 1.25 mg Q2H PRN INH 05/08/16 22:30 06/07/16 22:29 Metoclopramide HCl 10 mg 10 mg TID PEG 05/09/16 09:00 06/08/16 08:59 05/12/16 21:01 10 MG Lorazepam 0.5 mg/ Syringe 1 ml @ 1 mls/min Q4 PRN IV 05/12/16 15:15 06/11/16 15:14 Promethazine HCl/ Sodium Chloride (Phenergan Inj/ Nss 50ml) 51 ml @ 204 mls/hr Q6H PRN IV 05/12/16 21:45 06/11/16 21:44 Glycopyrrolate 0.2 mg 0.2 mg Q4H PRN IV. 05/12/16 23:15 06/11/16 23:14 Morphine Sulfate/ Dextrose (Morphine Sulf/ Nss 250MG/250ML) 250 ml @ 12 mls/hr [id number] PRN IV 05/13/16 00:00 05/27/16 00:00 05/13/16 00:21 1 MLS/HR Objective Vital Signs Date Time Temp Pulse Resp B/P Pulse Ox O2 Delivery O2 Flow Rate FiO2 05/14/16 16:00 Nasal Cannula 2.0 05/14/16 08:00 Nasal Cannula 2.0 05/14/16 07:52 36.7 90 20 152/71 97 Nasal Cannula 2.0 05/13/16 20:00 Nasal Cannula 2.0 Physical Exam General Appearance: no apparent distress Eyes: normal inspection Respiratory/Chest: chest non-tender, + wheezing Cardiovascular: regular rate, rhythm Abdomen: non tender, soft Assessment and Plan 80 y/o F resident of [facility] with multiple comorbidities including h/o bowel ischemia /UC s/p colostomy, fistula tube , HTN, DM, who was on IV vancomycin for MRSA infected cyst in left breast and had nausea and vomiting presented to ED with complaint of shortness of breath that began earlier in the day prior to arrival. Made FLOWER BUNCHER OR PICKER on05/13 Currently on comfort measures only No further medications via PEG tube - IVF dc - Morphine drip titrate as needed - Ativan 0.5mg IV q4h PRN. - Glycopyrrolate 0.2mg q4h PRN secretions DNR Reviewed: Pt Seen/Exam by Me, YULISSA Notes History Resident Physician Supervision Note: I interviewed and examined the patient. Discussed with Dr. Yip and agree with findings and plan as documented in the note. Any exceptions or clarifications are listed here: Pt with multiple comorbidities as above and developed sepsis with lactic acidosis during this hospital stay. CT abd/pel without evidence of ischemic bowel, however this was highly suspected. Family decided for comfort measures only and she is resting comfortably on morphine gtt, appears with agonal respirations and is likely imminent. Discussed end of life process with multiple present family members at the bedside today and answered all questions. Documented By: Shilpi Bonilla
[2016-05-14] MEDS: MoRPHine SULF/NSS 250MG/250ML 250 ML IV PRN (18:30)
[2016-05-15] MEDS ORDERED: NURSING VERBAL MED ORDER ONE ×9 (01:30→13:15)
[2016-05-15 08:00] VITALS: O2SAT 97
[2016-05-15] MEDS: BACITRACIN/POLYMYXIN B OINT 15 GM TUBE EXT SCH (08:00)
[2016-05-15] MEDS: METOCLOPRAMIDE HCL 10 MG/10 ML UDC PEG SCH (08:00)
[2016-05-15] MEDS ORDERED: LORAZEPAM 2 MG/ML 1 ML VIAL IV PRN (09:15)
[2016-05-15] MEDS ORDERED: LORAZEPAM INJ 1 MG in SYRINGE 0.5 ML IV PRN (09:30)
--- NOTE | 2016-05-15 14:17 | Death Pronouncement Note ---
Pronouncement Note Date & Time of May 15, 2016. 1400 Pronouncement At time of pronouncement the patients pupils were fixed and dilated, there was no spontaneous respiratory effort, no palpable pulse, no audible heart tones, and no response to pain or voice.
--- NOTE | 2016-05-15 22:16 | Death Summary ---
Summary of Admission Date May 08, 2016 at 22:00 Date & Time of May 15, 2016. 1400 Cause of Ischemic bowel, sepsis Secondary Diagnoses Lactic acidosis DMII PAD ileus dysphagia sacral decubitus ulcer stage III POA Hypothyroidism HTN Aspiration pneumonitis Generalized weakness H/o bowel ischemia S/p colectomy and ileostomy H/o intraperitoneal abscess and fistula formation Gastroparesis Depression/anxiety GERD Chronic pain disorder MRSA infected cyst in left breast PMR Hospital Course The patient is an 80-year-old female who presented to the emergency department with complaint of shortness of breath that began earlier in the day prior to arrival. She lives at [facility] and [facility], and her temperature reportedly was taken there was 99.6. She did have an episode of nausea and vomiting while at [facility] and then her POx was 88% so she was sent to the ER. She presently is on Linezolid for a MRSA infected cyst under her left breast. 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 She had a PEG tube for chronic dysphagia and was bed and chair bound due to profound generalized weakness after numerous and long hospital stays in the 15 months prior. Her tube feeds were held due to ileus and she was treated empirically for aspiration pneumonitis with clindamycin. She was treated with Daptomycin for her breast cyst. She actually had some improvement after 2 days and her mental status improved. Her repeat KUB showed her ileus was improved and plans were made to restart her tube feeds. However, by the next day her WBC count went up to 13 and her HCO3 dropped to 15 and then down to 12. She had a lactate that was elevated at 4 and began to have tachypnea, tachycardia, respiratory distress , and acute hypoxemic respiratory failure again. She had sepsis and increased abdominal pain on exam. Urgent CT abd/pel with IV contrast only was obtained and did not show evidence of ischemic bowel but no bowel contrast was given. She was bolused with IVFs, blood cultures were drawn, and she was started back on broad spectrum antibiotics with IV Zosyn and Dapto. With concerns of a h/o bowel ischemia, general surgery was consulted, but shortly after, family decided to make the patient on comfort measures only. It was noted by nursing staff the day prior to that she had black liquid in her colostomy bag and so ischemic bowel seemed to be most likely source of her sepsis and lactic acidosis. She was placed on a morphine drip which was titrated for comfort, given ativan prn anxiety. She and was confirmed at 1400 on 05/15/16 with multiple family members at the bedside. Copy To David Fontanez D.O.
--- NOTE | 2016-05-18 08:30 | EDITING REQUIRED CODING QUERY ---
I was not involved in her care during this hospitalization, thanks SEPSIS To promote full compliance with coding requirements relating to patient care, physician participation is requested in all cases of orthodontist vice president uncertainty. Please assist us with the question(s) below: In responding to this query, please exercise your independent professional judgement. The fact that a question is asked does not imply that any particular answer is desired or expected. We appreciate your clarification on this issue. Throughout the medical record, you have clearly documented a localized infection and your patient has clinical evidence of a generalized sepsis or severe sepsis. The term urosepsis is a nonspecific entity and is coded as an UTI. If the patient has sepsis, severe sepsis, from an urinary source or some other source, please clarify in your response below. The medical record reflects the following clinical findings: Patient with fever, breast abscess _Please check the appropriate . Thank you! JANETTE Roy CCS ( )Bacteremia (Nonspecific laboratory finding of bacteria in the blood) Specify Organism ( ) Present on Admission ( ) Not present on admission ( ) Unable to clinically determine ( ) Septicemia (Systemic disease associated with the presence of pathogenic microorganisms in the blood): Specify Organism ( ) Present on Admission( ) Not present on admission ( ) Unable to clinically determine ( ) Sepsis Specify Organism Specify Associated Condition/Diagnosis ( ) Present on Admission ( ) Not present on admission ( ) Unable to clinically determine ( ) Severe Sepsis (Sepsis associated with acute organ dysfunction) Specify Organism Specify Associated Condition/Diagnosis ( ) Present on Admission() Not present on admission ( ) Unable to clinically determine ( ) Septic Shock (Severe sepsis with acute circulatory failure, unexplained by other causes) ( ) Present on Admission( ) Not present on admission ( ) Unable to clinically determine ( ) Other, patient has:
--- NOTE | 2016-05-19 14:09 | EDITING REQUIRED CODING QUERY ---
SEPSIS To promote full compliance with coding requirements relating to patient care, physician participation is requested in all cases of music historian uncertainty. Please assist us with the question(s) below: In responding to this query, please exercise your independent professional judgement. The fact that a question is asked does not imply that any particular answer is desired or expected. We appreciate your clarification on this issue. Throughout the medical record, you have clearly documented a localized infection and your patient has clinical evidence of a generalized sepsis or severe sepsis. The term urosepsis is a nonspecific entity and is coded as an UTI. If the patient has sepsis, severe sepsis, from an urinary source or some other source, please clarify in your response below. Patient admitted with aspiration pneumonia. Presently on IV Vancomycin for MRSA infected cyst. Pulse 100-116. WBC up to 13. 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 Discharge summary states sepsis. Please document below the diagnosis you treated. Thanks for your help! JANETTE Roy CCS ( )Bacteremia (Nonspecific laboratory finding of bacteria in the blood) Specify Organism ( ) Present on Admission( ) Not present on admission ( ) Unable to clinically determine ( ) Septicemia (Systemic disease associated with the presence of pathogenic microorganisms in the blood): Specify Organism ( ) Present on Admission( ) Not present on admission( ) Unable to clinically determine ( ) Sepsis Specify Organism Specify Associated Condition/Diagnosis ( ) Present on Admission( ) Not present on admission ( ) Unable to clinically determine (x ) Severe Sepsis (Sepsis associated with acute organ dysfunction) Specify Organism Specify Associated Condition/Diagnosis ( ) Present on Admission( ) Not present on admission (x ) Unable to clinically determine ( ) Septic Shock (Severe sepsis with acute circulatory failure, unexplained by other causes) ( ) Present on Admission( ) Not present on admission ( ) Unable to clinically determine ( ) Other, patient has:
== END 2016-05-15 16:14 | disposition expired | DRG 177 ==
LOC: ENRESERVDT → ENRESERVTM → EDBD 18:03 → C.EDC 18:04 → C.MED 22:00 → C.4E 05-12 08:11 → C.2E 05-12 16:30 → C.4E 05-13 00:57
PROVIDERS: ADMIT Hospitalist; ATTEND Family Medicine
DX: J69.0 Pneumonitis due to inhalation of food and vomit (principal); Z51.5 Encounter for palliative care; E86.0 Dehydration; L89.153 Pressure ulcer of sacral region, stage 3; K56.0 Paralytic ileus; N39.0 Urinary tract infection, site not specified; K56.7 Ileus, unspecified; J96.01 Acute respiratory failure with hypoxia; K55.1 Chronic vascular disorders of intestine; E78.5 Hyperlipidemia, unspecified; I10 Essential (primary) hypertension; R13.10 Dysphagia, unspecified; Z93.2 Ileostomy status; N60.09 Solitary cyst of unspecified breast; E03.9 Hypothyroidism, unspecified; K31.84 Gastroparesis; N60.02 Solitary cyst of left breast; F32.9 Major depressive disorder, single episode, unspecified; B95.62 Methicillin resistant Staphylococcus aureus infection as the cause of diseases classified elsewhere; K21.9 Gastro-esophageal reflux disease without esophagitis; Z66 Do not resuscitate; R65.20 Severe sepsis without septic shock